=== PATIENT | female | born 1985 | race Caucasian/White ===

== ENCOUNTER 2020-04-02 16:10 | Outpatient (REF) | payer OTHER, SELFPAY | END 2020-04-02 16:11 | disposition home or self-care (01) | LOC: HO.LAB 16:10 | PROVIDERS: Visit Provider Internal Medicine | DX: Z20.828 Contact with and (suspected) exposure to other viral communicable diseases (principal) | CPT/HCPCS: C9803; U0003 ==

== ENCOUNTER 2020-04-26 10:08 | Outpatient (REF) | payer OTHER, SELFPAY | END 2020-04-26 10:09 | disposition home or self-care (01) | LOC: HO.LAB 10:08 | PROVIDERS: PCP Physician Assistant; Visit Provider Internal Medicine | DX: Z20.822 Contact with and (suspected) exposure to COVID-19 (principal) | CPT/HCPCS: 36415; C9803; U0003 ==

== ENCOUNTER 2020-06-18 14:08 | Outpatient (REF) | payer OTHER, SELFPAY ==
[2020-06-18 17:18] LABS: Syphilis Screen Nonreactive (Nonreactive)
[2020-06-20 03:51] LABS: C. trachomatis RNA TMA NOT DETECTED (NOT DETECTED); N. gonorrhoeae RNA TMA NOT DETECTED (NOT DETECTED)
[2020-06-21 04:10] LABS: HIV AB/AG Nonreactive (Nonreactive); HIV Num 1 0.04 S/CO (0.00-0.99)
[2020-06-21 04:21] LABS: HBsAGNum1 0.17 S/CO (0.00-0.99); Hepatitis B Surface Antigen Negative (Negative); ~HepC Num1 0.09 S/CO (0.00-0.79); ~Hepatitis C Antibody Nonreactive (Nonreactive)
[2020-06-23 04:48] LABS: HPV mRNA E6/E7 rflx Not Detected (Not Detected)
== END 2020-06-18 14:09 | disposition home or self-care (01) ==
LOC: HO.LAB 14:08
PROVIDERS: PCP Physician Assistant; Visit Provider Advanced Practice Midwife
DX: Z01.411 Encounter for gynecological examination (general) (routine) with abnormal findings (principal); Z11.51 Encounter for screening for human papillomavirus (HPV); N92.6 Irregular menstruation, unspecified; N94.10 Unspecified dyspareunia; Z20.2 Contact with and (suspected) exposure to infections with a predominantly sexual mode of transmission
CPT/HCPCS: 36415; 86780; 86803; 87340; 87389; 87491; 87591; 87624; 88142

== ENCOUNTER 2020-07-28 12:18 | Outpatient (REF) | payer OTHER, SELFPAY ==
[2020-07-28 12:44] LABS: COVID-19 Test Negative (Negative)
== END 2020-07-28 12:19 | disposition home or self-care (01) ==
LOC: HO.LAB 12:18
PROVIDERS: Visit Provider Internal Medicine
DX: Z20.822 Contact with and (suspected) exposure to COVID-19 (principal)
CPT/HCPCS: 36415; 87635; C9803

== ENCOUNTER → 2020-08-09 09:52 | Outpatient (BNVA) | payer OTHER, SELFPAY | PROVIDERS: Visit Provider Advanced Practice Midwife | DX: Z13.89 Encounter for screening for other disorder (principal) | CPT/HCPCS: Q3014 ==

== ENCOUNTER 2020-09-16 21:59 | Emergency (ER) | payer OTHER, SELFPAY ==
[2020-09-16 22:02] VITALS: BP 110/63; PULSE 79; RESP 18; TEMP 37; O2SAT 97; BMI 32.1
--- NOTE | 2020-09-16 22:12 | PC.NURSE ---
nodding off in wr. easily arousable to voice. pupils 3-4 mm
== END 2020-09-16 23:15 | disposition left against medical advice (07) ==
PROVIDERS: Emergency Provider Internal Medicine; PCP Physician Assistant
DX: L23.9 Allergic contact dermatitis, unspecified cause (principal)
CPT/HCPCS: 99282

== ENCOUNTER 2021-01-03 12:21 | Outpatient (REF) | payer OTHER, SELFPAY ==
[2021-01-04 04:48] LABS: HBc Num1 0.07 S/CO (0.00-0.79); Hepatitis B Core Antibody Nonreactive (Nonreactive); ~Hepatitis B Surface Antibody REACTIVE (Nonreactive)
[2021-01-04 04:55] LABS: HBsAGNum1 0.19 S/CO (0.00-0.99); Hepatitis B Surface Antigen Negative (Negative)
[2021-01-05 02:36] LABS: Rubella IgG Antibody 1.34 Index
[2021-01-06 13:21] LABS: TS Negative Control Passed; TS Panel A 1; TS Panel B 0; TS Positive Control Passed; TSpotTB Negative (SeeBelow)
== END 2021-01-03 12:22 | disposition home or self-care (01) ==
LOC: HO.LAB 12:21
PROVIDERS: PCP Physician Assistant; Visit Provider Physician Assistant
DX: Z01.84 Encounter for antibody response examination (principal)
CPT/HCPCS: 36415; 86481; 86704; 86706; 86735; 86762; 86765; 86787; 87340

== ENCOUNTER 2021-01-10 11:01 | Outpatient (REF) | payer OTHER, SELFPAY ==
[2021-01-10 12:25] LABS: Hematocrit 43.4 % (37-47); Hemoglobin 14.1 g/dl (12.0-16.0); Mean Corpuscular HGB Conc 32.5 g/dl (31.0-35.0); Mean Corpuscular Hemoglobin 28.5 pg (27.0-33.0); Mean Corpuscular Volume 87.7 fL (80-98); Mean Platelet Volume 11.5 fL (9.4-12.3); Platelet Count 346 X10*3/uL (160-400); Red Blood Count 4.95 X10*6/uL (4.20-5.50); White Blood Count 9.5 X10*3/uL (4.8-10.8)
[2021-01-10 12:30] LABS: Estimated Average Glucose 108 mg/dL; Hemoglobin A1c % 5.4 %
[2021-01-10 12:50] LABS: Alanine Aminotransferase 25 U/L (0-31); Albumin Level 4.2 g/dL (3.5-5.0); Alkaline Phosphatase 80 U/L (39-117); Anion Gap 12 (12-20); Aspartate Amino Transferase 14 U/L (5-31); Bilirubin Total 0.4 mg/dL (0.0-1.0); Blood Urea Nitrogen 13 mg/dL (9-16); Calcium 9.6 mg/dL (8.4-10.2); Carbon Dioxide 27 mmol/L (22-29); Chloride 104 mmol/L (96-108); Cholesterol 162 mg/dL; Estimated Glomerular Filt Rate > 60; Glucose Fasting 95 mg/dL (60-99); HDL Cholesterol 50 mg/dL; LDL Cholesterol Calculated 92 mg/dl; Potassium 4.8 mmol/L (3.3-5.1); Sodium 138 mmol/L (135-145); Total Protein 7.5 g/dL (6.5-8.0); Triglycerides 100 mg/dL
[2021-01-10 12:54] LABS: TSH reflex Free T4 1.89 uIU/mL (0.32-4.0)
== END 2021-01-10 11:02 | disposition home or self-care (01) ==
LOC: HO.LAB 11:01
PROVIDERS: PCP Physician Assistant; Visit Provider Physician Assistant
DX: Z13.1 Encounter for screening for diabetes mellitus (principal); E66.09 Other obesity due to excess calories; Z68.32 Body mass index [BMI] 32.0-32.9, adult; I10 Essential (primary) hypertension
CPT/HCPCS: 36415; 80053; 80061; 83036; 84443; 85027

== ENCOUNTER → 2021-06-14 12:07 | Outpatient (BNVA) | payer OTHER, SELFPAY | PROVIDERS: PCP Physician Assistant; Visit Provider Dietitian, Registered | DX: E66.09 Other obesity due to excess calories (principal); Z68.32 Body mass index [BMI] 32.0-32.9, adult; Z71.3 Dietary counseling and surveillance | CPT/HCPCS: 97802 ==

== ENCOUNTER 2021-11-09 14:26 | Outpatient (REF) | payer OTHER, SELFPAY ==
[2021-11-09 15:48] LABS: Hematocrit 38.7 % (37.0-47.0); Hemoglobin 12.7 g/dl (12.0-16.0); Mean Corpuscular HGB Conc 32.8 g/dl (31.0-35.0); Mean Corpuscular Hemoglobin 29.5 pg (27.0-33.0); Mean Corpuscular Volume 89.8 fL (80.0-98.0); Mean Platelet Volume 11.3 fL (9.4-12.3); Platelet Count 298 X10*3/uL (160-400); Red Blood Count 4.31 X10*6/uL (4.20-5.50); Red Cell Distribution Width 12.7 % (11.0-16.0)
[2021-11-09 16:10] LABS: Anion Gap 11 (12-20); Blood Urea Nitrogen 13 mg/dL (9-16); Calcium 8.6 mg/dL (8.4-10.2); Carbon Dioxide 26 mmol/L (22-29); Chloride 107 mmol/L (96-108); Estimated Glomerular Filt Rate > 60; Glucose Random 112 mg/dL (60-115); Iron 70 mcg/dL (30-160); Percent Iron Saturation 18 % (15-50); Potassium 3.9 mmol/L (3.3-5.1); Sodium 140 mmol/L (135-145); Total Iron Binding Capacity 385 mcg/dL (228-428); Unsaturated Iron Binding 315 ug/dL
[2021-11-09 16:31] LABS: Syphilis Screen Nonreactive (Nonreactive); TSH reflex Free T4 0.86 uIU/mL (0.32-4.0)
[2021-11-09 17:24] LABS: CT PCR NOT DETECTED (Not Detect.); NG PCR NOT DETECTED (Not Detect.)
[2021-11-10 09:22] LABS: HIV AB/AG Nonreactive (Nonreactive); HIV Num 1 0.06 S/CO (0.00-0.99)
== END 2021-11-09 14:27 | disposition home or self-care (01) ==
LOC: HO.LAB 14:26
PROVIDERS: PCP Physician Assistant; Visit Provider Physician Assistant
DX: Z11.3 Encounter for screening for infections with a predominantly sexual mode of transmission (principal); Z11.4 Encounter for screening for human immunodeficiency virus [HIV]; R23.3 Spontaneous ecchymoses; D50.9 Iron deficiency anemia, unspecified; Z20.2 Contact with and (suspected) exposure to infections with a predominantly sexual mode of transmission
CPT/HCPCS: 80048; 83540; 84443; 85027; 86780; 87389; 87491; 87591

== ENCOUNTER 2022-06-17 05:11 | Emergency (ER) | payer OTHER, SELFPAY ==
--- NOTE | ~2022-06-17 | CT_ITS ---
EXAMINATION: CT HEAD WITHOUT CONTRAST CLINICAL INFORMATION: Face tingling, cocaine use COMPARISON: 06/04/2019 TECHNIQUE: Contiguous axial imaging was performed from the skull base to vertex without intravenous administration of contrast. This CT examination was performed using dose optimization techniques as appropriate, variously including the following: *Automated exposure control *Adjustment of mA and/or kV according to patient size (this includes techniques or standardized protocols for targeted exams where dose is matched to indication/reason for exam; i.e. extremities or head) *Use of iterative reconstruction technique DLP: 608 mGy-cm FINDINGS: There is no evidence of acute intracranial hemorrhage or territorial infarction. No abnormal mass-effect or midline shift is seen. Heath to white matter differentiation is well preserved. No extra-axial fluid collections are identified. The ventricles are normal in size. There is no abnormal attenuation within the brain parenchyma. The osseous structures and soft tissues are normal. Partially opacified right mastoid air cells. The visualized portions of the paranasal sinuses are well-aerated. CT/CT head/brain wo IV con IMPRESSION: No acute intracranial pathology.
--- NOTE | ~2022-06-17 | MR_ITS ---
MRI OF THE BRAIN WITHOUT IV CONTRAST INDICATION: Left facial numbness and aphasia. COMPARISON: Brain MRI 06/04/[address] 06/17/2022. TECHNIQUE: Multiplanar multisequence MR imaging of the brain was obtained without IV contrast. FINDINGS: There is no hydrocephalus, extra-axial surface collection, or herniation. No parenchymal signal abnormality. The major flow voids at the skull base are preserved. There is no acute infarct on diffusion-weighted imaging. There is no intracranial hemorrhage on the gradient recalled echo acquisition. The midline structures are normal. The cerebellar tonsils are normally positioned. The cerebellum and brainstem are normal. The craniocervical junction is normal. Osseous marrow signal intensity is homogenous. The visualized soft tissues are unremarkable. MR/MR head/brain wo con IMPRESSION: - No acute intracranial findings. No acute infarcts. - There is a moderate sized right mastoid effusion.
[2022-06-17 05:27] VITALS: BP 132/86; BP 133/70; PULSE 80; PULSE 83; RESP 16; TEMP 36.7; O2SAT 100; O2SAT 99; BMI 29.2
--- NOTE | 2022-06-17 05:41 | ECG_ITS ---
Test Reason : HEADACHE Blood Pressure : / mmHG Vent. Rate : 072 BPM Atrial Rate : 072 BPM P-R Int : 130 ms QRS Dur : 090 ms QT Int : 394 ms P-R-T Axes : 057 024 018 degrees QTc Int : 431 ms Normal sinus rhythm Normal ECG When compared to the previous EKG of No significant changes seen Referred By: Generic ED Physician Electronically Signed By:SANG MCKENZIE MD
[2022-06-17 05:57] LABS: MANUAL DIFF FLAG NO
[2022-06-17 05:58] LABS: Basophils Percent Auto 0.4 % (0-2); Eosinophils Percent Auto 0.2 % (0-4); Hematocrit 35.9 % (37.0-47.0); Hemoglobin 11.9 g/dl (12.0-16.0); Imm Gran Abs Auto 0.02 X10*3/uL (0.00-0.03); Imm Gran Pct Auto 0.2 % (0.0-0.4); Lymphocytes Absolute Auto 2.1 X10*3/uL (1.2-4.9); Lymphocytes Percent Auto 19.9 % (20-40); Mean Corpuscular HGB Conc 33.1 g/dl (31.0-35.0); Mean Corpuscular Hemoglobin 28.6 pg (27.0-33.0); Mean Corpuscular Volume 86.3 fL (80.0-98.0); Mean Platelet Volume 11.4 fL (9.4-12.3); Monocytes Absolute Auto 0.6 X10*3/uL (0.1-1.2); Monocytes Percent Auto 5.4 % (2-11); Neutrophils Absolute Auto 7.7 x10*3/uL (2.0-8.3); Neutrophils Percent Auto 73.9 % (45-73); Platelet Count 327 X10*3/uL (160-400); Red Blood Count 4.16 X10*6/uL (4.20-5.50); Red Cell Distribution Width 12.5 % (11.0-16.0); White Blood Count 10.5 X10*3/uL (4.8-10.8)
--- NOTE | 2022-06-17 05:58 | PC.NURSE ---
Patient reports symptoms are improving. She is alert and oriented x3. Her speech is clear. Patient denies issues with swallowing. Her vision is not blurry any more. Left sided numbness and tingling is almost completely resolved. VSS. Labs drawn and sent to lab. panel monitor applied, NSR, HR 77. Patient oriented to the room, instructed in call sahu use and symptoms to report. Call sahu within patient's reach. Patient is calm, on the stretcher bed, speaking to her to her on the phone.
[2022-06-17 06:21] LABS: Anion Gap 15 (12-20); Blood Urea Nitrogen 15 mg/dL (9-16); Calcium 9.1 mg/dL (8.4-10.2); Carbon Dioxide 23 mmol/L (22-29); Chloride 107 mmol/L (96-108); Creatinine Clr Calc Pharmacy 91.5; Estimated Glomerular Filt Rate > 60; Glucose Random 100 mg/dL (60-115); Potassium 3.9 mmol/L (3.3-5.1); Sodium 141 mmol/L (135-145); Troponin-I High Sensitivity < 3.5 ng/L (<3.5-17.0)
[2022-06-17 06:29] VITALS: BP 139/83; PULSE 85; RESP 19; TEMP 36.5; O2SAT 97
--- NOTE | 2022-06-17 06:39 | MHC.EDTECH ---
Pt made aware that urine sample is needed but states that she does not want to try go right now because she doesn't need to go. Rn Luz made aware
[2022-06-17 06:43] VITALS: PULSE 81
--- NOTE | 2022-06-17 06:44 | PC.NURSE ---
Labs drawn, patient refused IV line placement at this time reporting that we could do it later if needed. Dr. Hernandez notified.
--- NOTE | 2022-06-17 07:08 | ED_ITS ---
HPI - General Adult General Chief complaint: ETOH/Substance Use Stated complaint: Left arm Numbness/Drug Use Time Seen by Provider: 06/17/22 06:53 Source: patient and EMS Mode of arrival: EMS Limitations: no limitations History of Present Illness HPI narrative: 37-year-old female came in by ambulance for evaluation of left-sided facial in left arm numbness. Patient used cocaine last night shortly after sniffing cocaine patient started to feel left facial numbness and left upper extremities numbness, patient also lost her voice and could not speak, patient while in the emergency department her symptoms start to improve. Patient normally do not use drugs claimed that that is her 1st time using cocaine. No fever, no chills, now patient feels better but not totally back to normal. Related Data Home Medications Medication Instructions Recorded Confirmed spironolactone 100 mg tablet 100 mg PO BID 01/15/20 11/09/21 Previous Rx's Medication Instructions Recorded prednisone 20 mg tablet 20 mg PO BID #9 tabs 06/27/21 fluconazole 150 mg tablet 150 mg PO Q3D 2 doses #2 tabs 07/25/21 albuterol sulfate 90 mcg/actuation 2 puff inhalation Q4-6H PRN 10/11/21 aerosol inhaler bronchospasm #8.5 grams albuterol sulfate 2.5 mg/3 mL 2.5 mg (3 mL) inhalation Q6H PRN 11/28/21 (0.083 %) solution for nebulization shortness of breath or wheezing 30 days #180 mL norethindrone acetate 1 mg-ethinyl 1 tab PO DAILY #63 tabs 12/29/21 estradiol 20 mcg tablet (Junel) bupropion HCl 150 mg tablet,12 hr 150 mg PO BID #180 caps 05/08/22 sustained-release risperidone 0.5 mg tablet 0.5 mg PO BID 90 days #180 tabs 05/20/22 Allergies Allergy/AdvReac Type Severity Reaction Status Date / Time No Known Allergies Allergy Verified 11/09/21 13:52 [No Known Allergies*] Review of Systems Review of Systems: All other systems are reviewed and are negative Constitutional: Reports as per HPI and Reports no additional constitutional complaints Eyes: Reports as per HPI and Reports no additional eye complaints Reports system reviewed and no additional complaints, except as documented Cardiovascular: Reports as per HPI and Reports no additional cardiovascular complaints Respiratory: Reports as per HPI and Reports no additional respiratory complaints Gastrointestinal: Reports as per HPI and Reports no additional gastrointestinal complaints Genitourinary: Reports no additional female genitourinary complaints Musculoskeletal: Reports no additional musculoskeletal complaints Skin/Breast: Reports system reviewed and no additional complaints, except as docu Psychiatric: Reports no additional psychiatric complaints Endocrine: Reports no additional endocrine complaints Hematologic/Lymphatic: Reports no additional hematologic/lymphatic complaints Allergic/Immunologic: Reports no additional allergic/immunologic complaints Reports system reviewed and no additional complaints, except as documented and Reports Abnormal speech present [facility] Past Medical History Surgical History delivery delivered H/O LEEP History of bilateral tubal ligation Family History Family History Father AIDS Mother Heart failure Diabetes Stroke Mental health disorder Social History Social History Housing: Apartment Alcohol intake: current Alcohol intake frequency: holidays/special occasions only Patient Tobacco Use Status: Former Tobacco user Quit Date: 08/2021 Tobacco use type: Smokeless Tobacco Cigarettes Per Day: 4 e-Cigarette/Vaping Use: Currently Using (2 month ago with zero nicotine) Second Hand Smoke Exposure: No Use of substances other than those prescribed or required for medical reasons: Yes Substance Use Type: Crack/Cocaine Last Used Substance: Hours (ago) Advance Directives: No Advance Directives Information Provided: No service: No Current occupational status: employed Current occupation: [employer] FOR [employer] Gender identity: Female Cognitive needs: No Hearing needs: No Vision needs: No Physical Exam ED Vital Signs: Vital Signs - 24 hr 06/17/22 05:27 06/17/22 06:29 06/17/22 07:29 Temperature 98.0 F 97.7 F 97.7 F Pulse Rate 83 85 68 Respiratory Rate 16 19 16 Blood Pressure 132/86 139/83 122/74 Pulse Oximetry 99 97 98 Oxygen Delivery Method Room Air Room Air Room Air BMI result Body Mass Index 29.2 Vital signs have been reviewed as appeared to be correct. Blood pressure normal. Heart rate normal. Respiration rate normal. Temperature normal. Ox ygen saturation normal. Appearance: Alert. Oriented X3. No acute distress. Head: Normal external exam. Normocephalic. Atraumatic. No Thompson signs noted. No raccoon eyes noted Eyes: PERRLA. EOMI. Conjunctiva and sclera normal. Eyelids normal. ENT: TM's Normal. Pharynx normal. Uvula midline. Moist mucous membranes. No trismus noted. No drooling noted. No muffled voice noted. Neck: Normal inspection. Neck supple. FROM. No adenopathy. Thyroid Normal. No meningeal signs. No neck mass noted. CVS: Normal heart rate and rhythm. Heart sound normal. No murmurs noted. Pulses normal throughout. Respiratory: No respiratory distress. Painless inspiration. Breath sounds n ormal. No wheezes/rales/rhonchi noted. Chest nontender. No accessory muscle usage noted or decreased air movement noted. Abdomen: Soft and nontender. Bowel sounds normal in all 4 quadrants. No diste ntion noted. No organomegaly noted. No visible injury noted. Back: No CVA tenderness. Full range of motion noted. Skin: Skin warm and dry. Normal skin color. Normal skin turgor. No rashes/lesions/lacerations noted. Extremities: No lower extremity edema. Extremities exhibit normal range of m otion. Extremities nontender. Neuro: Oriented X 3. Cranial nerve exam: II-XII are grossly intact No motor deficit. No sensory deficit. Reflexes normal. NIH Stroke Scale Time: 07:11 Level of Consciousness: Alert Level of Consciousness Questions: Answers both questions correctly Level of Consciousness Commands: Performs both tasks correctly Best Gaze: Normal Visual: No visual loss Facial Palsy: Normal Motor Arm (Right): No drift Motor Arm (Left): No drift Motor Leg (Right): No drift Motor Leg (Left): No drift Limb Ataxia: Absent Sensory: Normal Best Language: No aphasia Dysarthia: Normal Extinction and Inattention: No abnormality Score: 0 Course Course Course Narrative: 37-year-old female presented with left side numbness and lost ability to speak for few minutes, neuro exam is totally normal in the emergency department with NIH score of 0. Normal CT/MRI of the brain for acute stroke. Patient will be discharged home patient was instructed not to use drugs in the future. Medical Decision Making Differential Diagnosis Differential Diagnoses: The differential diagnosis associated with the presentation includes (Anxiety, substance abuse effect, stroke.) Lab Data MDM Lab Attestation statement: I reviewed the patient's lab results. 06/17/22 05:52 06/17/22 05:52 Labs: Lab Results 06/17/22 06/17/22 06/17/22 Range/Units 05:52 05:52 05:52 WBC 10.5 (4.8-10.8) X10*3/uL RBC 4.16 L (4.20-5.50) X10*6/uL Hgb 11.9 L (12.0-16.0) g/dl Hct 35.9 L (37.0-47.0) % MCV 86.3 (80.0-98.0) fL MCH 28.6 (27.0-33.0) pg MCHC 33.1 (31.0-35.0) g/dl RDW 12.5 (11.0-16.0) % Plt Count 327 (160-400) X10*3/uL MPV 11.4 (9.4-12.3) fL Immature Gran % (Auto) 0.2 (0.0-0.4) % Neut % (Auto) 73.9 H (45-73) % Lymph % (Auto) 19.9 L (20-40) % Haskell % (Auto) 5.4 (2-11) % Eos % (Auto) 0.2 (0-4) % Baso % (Auto) 0.4 (0-2) % Lymph # (Auto) 2.1 (1.2-4.9) X10*3/uL Haskell # (Auto) 0.6 (0.1-1.2) X10*3/uL Eos # (Auto) 0.0 (0.0-0.4) X10*3/uL Baso # (Auto) 0.0 (0.0-0.2) X10*3/uL Abs Immat Gran (auto) 0.02 (0.00-0.03) X10*3/uL Absolute Neuts (auto) 7.7 (2.0-8.3) x10*3/uL Absolute Nucleated RBC 0.000 (0.0-0.012) X10*3/uL Nucleated RBC % (auto) 0.0 (0.0-0.2) /100WBC Sodium 141 (135-145) mmol/L Potassium 3.9 (3.3-5.1) mmol/L Chloride 107 (96-108) mmol/L Carbon Dioxide 23 (22-29) mmol/L Anion Gap 15 (12-20) BUN 15 (9-16) mg/dL Creatinine 0.77 (0.5-1.4) mg/dL Estim Creat Clear Calc 91.5 Estimated GFR > 60 Random Glucose 100 (60-115) mg/dL Calcium 9.1 (8.4-10.2) mg/dL Troponin I High Sens < 3.5 (<3.5-17.0) ng/L Independent Interpretation I performed an independent interpretation of an: CT Scan (Brain: No acute intracranial pathology.) Interpretation: MRI of the brain: No acute stroke. Radiology Impression Discussion of test interpretation with radiology: I have reviewed the radiologist's reading. Critical Care Time Critical Care Time Critical Care Time: Yes Total Critical Care Time: 45 Attestation: I spent 45 minutes providing critical care service to the patient, this including time spent at the bedside to evaluate the patient, reassess the patient, monitoring vital signs, review labs, and radiographic studies, counseling the patient/family, discussing the case with consultants, disposition the patient. Discharge Plan Discharge Clinical Impression: Anxiety, Substance abuse Patient Disposition: Home, Self-Care Instructions: Polysubstance Abuse (ED) Prescriptions: No Action fluconazole 150 mg tablet 150 mg PO Q3D Qty: 2 0RF albuterol sulfate 90 mcg/actuation HFA aerosol inhaler 2 puff inhalation Q4-6H PRN (Reason: bronchospasm) Qty: 8.5 2RF albuterol sulfate 2.5 mg /3 mL (0.083 %) solution for nebulization 2.5 mg inhalation Q6H PRN (Reason: shortness of breath or wheezing) 30 Days Qty: 180 0RF norethindrone ac-eth estradiol [05/05 (21)] 1-20 mg-mcg tablet 1 tab PO DAILY Qty: 63 1RF bupropion HCl 150 mg tablet sustained-release 12 hr 150 mg PO BID Qty: 180 1RF risperidone 0.5 mg tablet 0.5 mg PO BID 90 Days Qty: 180 0RF spironolactone 100 mg tablet 100 mg PO BID prednisone 20 mg tablet 20 mg PO BID Qty: 9 0RF Rx Instructions: tapered dose, take 1 tablet bid x 3 days, then 1 tablet once a day x 3 days then discontinue Interventions: [place]-Suicide Risk Severity Scale Last Done: 06/17/22 06:43
[2022-06-17 07:29] VITALS: BP 122/74; PULSE 68; RESP 16; TEMP 36.5; O2SAT 98
--- NOTE | 2022-06-17 09:42 | PC.NURSE ---
mri screening form done and faxed to dept.
--- NOTE | 2022-06-17 11:37 | PC.NURSE ---
pt sitting up at end of stretcher fully dressed, nad. pt asking if she may go home and get called by provider with mri results. provider aware, will speak with pt shortly. pt tolerating po, neuros grossly intact ambulating in pt room w steady gait.
== END 2022-06-17 12:10 | disposition home or self-care (01) ==
PROVIDERS: Emergency Provider Emergency Medicine
DX: F41.9 Anxiety disorder, unspecified (principal); F19.10 Other psychoactive substance abuse, uncomplicated; R20.0 Anesthesia of skin; R47.01 Aphasia; Z87.891 Personal history of nicotine dependence; Z79.899 Other long term (current) drug therapy
CPT/HCPCS: 36415; 70450; 70551; 80048; 84484; 85025; 93005; 99285

== ENCOUNTER 2022-10-12 10:30 | Outpatient (RCR) | payer OTHER, SELFPAY ==
[2022-09-29 10:38] VITALS: BP 104/81; PULSE 65; TEMP 36.5
[2022-09-29 10:42] VITALS: BMI 28.0
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
[2022-09-29 12:34] LABS: Amphetamine Screen Urine Not Detected (Not Detect); Barbiturates, Urine Not Detected (Not Detect); Benzodiazepines Screen Urine Not Detected (Not Detect); Cannabinoid Screen Urine Not Detected (Not Detect); Cocaine Screen Urine Not Detected (Not Detect); Fentanyl, urine Not Detected (Not Detect); Opiate Screen Urine Not Detected (Not Detect); Phencyclidine Screen Urine Not Detected (Not Detect)
--- NOTE | 2022-10-03 13:20 | HO.PHPPROGNO ---
Subjective Subjective Date of Service: 10/03/22 Reason For Visit: bipolar,PTSD,anxiety Healthcare Proxy: No Guardianship: No Medical Problems Affecting Mental Status: No Interim History: Agatha is seen for a follow-up visit as part of her partial hospital program. Records and plans were reviewed. Labs were reviewed. She has been started on Seroquel 25 mg q.h.s. for sleep which had not worked for several nights except last night she did sleep 7 or 8 hours. She also has been started on Lamictal 25 mg at the end of last week and will go up to 50 mg in 2 weeks. She denies any side effects on either medications. She continues to feel depressed. She denies any specific suicidal ideations but continues to feel depressed and have wishes but no specific plans. She is finding the program helpful in she is engaged. She will continue the Lamictal and increase Seroquel to 50 mg. Medication Compliance: No Side effects from medications: No Attending Groups: Yes Review of Systems Review of Systems Sleep Yes all other systems are reviewed and are negative Mental Status Exam Mental Status Exam Narrative: In today's visit she is alert, oriented and pleasant. Normal speech. Good eye contact. Affect is appropriate and varied. Moderate dysphoria present. No signs of psychosis. No active suicidal ideations but continues to have wishes and not wanting to be around but denies any plans or danger. She contracts for safety. Cognitively is intact. Judgment is intact. Diagnostics Vital Signs (24Hr): BMI result Body Mass Index 28.0 Assessment & Plan Assessment & Plan (1) Bipolar disorder with current episode depressed: Status: Acute Code(s): F31.30 - Bipolar disorder, current episode depressed, mild or moderate severity, unspecified Plan She will continue the PHP. She will continue the gradual increase of Lamictal. She is aware of Mohr-Davion syndrome. Seroquel is increased to 50 mg. Two week supply with 1 refill was called in. She needs to be referred to an outpatient prescriber. She does have a therapist Patient educated on: diagnosis and medication risk/benefits Certification I certify that partial hospital treatment is medically necessary due to the symptoms and problems resulting from the patient's mental illness and the failure to treat the patient at the partial hospital level of care would likely result in the patient requiring inpatient psychiatric care which could not be prevented at a less intensive level of care. Total time managing care of this patient today ____ minutes. Discharge Plan Discharge Attending provider: Kiel Benito Medications: New quetiapine 25 mg tablet 25 mg PO BEDTIME Qty: 7 0RF lamotrigine 25 mg tablet 25 mg PO DAILY 14 Days Qty: 14 0RF No Action albuterol sulfate 90 mcg/actuation HFA aerosol inhaler 2 puff inhalation Q4-6H PRN (Reason: bronchospasm) Qty: 8.5 2RF melatonin 10 mg Tablet 10 mg PO BEDTIME PRN (Reason: Insomnia) ibuprofen 600 mg tablet 600 mg PO Q8H PRN (Reason: pain) Qty: 30 0RF cyclobenzaprine 5 mg tablet 5 mg PO BEDTIME PRN (Reason: muscle spasm) Qty: 14 0RF
--- NOTE | 2022-10-03 15:09 | HO.PHP ---
PHP staff member met with Agatha after the activity group to explore with her the comment around substance use, due to her stating prior she didn't struggle with substances. Agatha disclosed that she has been worried to talk about substance use because she does not want her job to find out that she had struggled with substances and finds it embarrassing. Agatha mentioned she has been trying to overcome it through prayer and talking with god. PHP staff explored with Agatha her substance of choice and how long she has been sober for. Agatha noted it is cocaine and she hasn't used in 22 days. Agatha expressed that she never thought she would use substances. PHP staff assessed with Agatha if she would like to partake in the substance group and mentioned that information that is disclosed is confidential unless she provided a release stating we can disclose that or if a vice president of compliance asks to view her records. Agatha was receptive and noted she would like to try the substance group and see if it would be something she would like to continue with. [facility] staff was receptive and stated she will inform the other staff here. Agatha was in agreement.
--- NOTE | 2022-10-06 08:53 | HO.PHP ---
The clients case was reviewed and opened in treatment team
--- NOTE | 2022-10-12 08:28 | HO.PHP ---
I spoke with Tori about her discharge plans . She will be returning to work and I will fax a referral for a prescriber to [facility]. I called her therapist and she stated that she will return my call.
--- NOTE | 2022-10-12 13:21 | HO.PHPPROGNO ---
Subjective Subjective Date of Service: 10/12/22 Reason For Visit: bipolar,PTSD,anxiety Healthcare Proxy: No Guardianship: No Medical Problems Affecting Mental Status: No Interim History: Agatha is seen for a follow-up visit as part of her partial hospital program. She is being discharged today. Records and plans were reviewed. She has been taking Seroquel 50 mg q.h.s. for sleep which has been helping; she say she is sleeping well. she still feels hypomanic and wants directions on how to titrate the lamictal. She denies any side effects on either medications. No rash. She continues to feel depressed and hypomani at times with racing thoughts. she says her mood is more stable than when she was not on any meds; She denies any suicidal ideations. She found the program helpful and plans to follow up with her PCP for meds. She will continue the Lamictal titration and Seroquel to 50 mg. Medication Compliance: Yes Side effects from medications: No Attending Groups: Yes Review of Systems Acute medical concerns: No Medical Review of Systems: unchanged Review of Systems Review of Systems Sleep Yes all other systems are reviewed and are negative Mental Status Exam Mental Status Exam Narrative: In today's visit she is alert, oriented and pleasant. Normal speech. Good eye contact. Affect is appropriate and varied. Moderate anxiety and dysphoria present. No signs of psychosis. No active suicidal or homicidal ideation She contracts for safety. Cognitively is intact. Judgment is intact. Diagnostics Vital Signs (24Hr): BMI result Body Mass Index 28.0 Assessment & Plan Assessment & Plan (1) Bipolar disorder with current episode depressed: Status: Acute Code(s): F31.30 - Bipolar disorder, current episode depressed, mild or moderate severity, unspecified Plan She will be discharged today from the [facility]. She will continue the gradual increase of Lamictal. Instructions given: take 50 mg daily x 10 days then 75 mg daily x 10 days then 100mg daily. stop lamictal if you develop a rash. She is aware of Mohr-Davion syndrome. contniue Seroquel 50 mg at bedtime. 10 day supply and 1 refill was called in. She needs to be referred to an outpatient prescriber. She does have a therapist Patient educated on: diagnosis, medication risk/benefits and therapeutic strategies Informed Consent: understands and further education needed Reason for contiued partial hosp. stay Substantial Risk for: harm to self, inability to function and rapid decompensation Certification I certify that partial hospital treatment is medically necessary due to the symptoms and problems resulting from the patient's mental illness and the failure to treat the patient at the partial hospital level of care would likely result in the patient requiring inpatient psychiatric care which could not be prevented at a less intensive level of care. Total time managing care of this patient today _40___ minutes. Discharge Plan Discharge Attending provider: Kiel Benito Medications: New lamotrigine 25 mg tablet 50 mg PO DAILY 20 Days Qty: 60 0RF Rx Instructions: take 2 tablets daily (50mg) for 10 days then take 3 tablets daily (75MG) for 10 days stop medication if develop rash quetiapine [Seroquel] 25 mg tablet 50 mg PO BEDTIME Qty: 20 1RF No Action albuterol sulfate 90 mcg/actuation HFA aerosol inhaler 2 puff inhalation Q4-6H PRN (Reason: bronchospasm) Qty: 8.5 2RF melatonin 10 mg Tablet 10 mg PO BEDTIME PRN (Reason: Insomnia) ibuprofen 600 mg tablet 600 mg PO Q8H PRN (Reason: pain) Qty: 30 0RF cyclobenzaprine 5 mg tablet 5 mg PO BEDTIME PRN (Reason: muscle spasm) Qty: 14 0RF Stand Alone Forms: Patient Portal Discharge page Patient Education: Bipolar Disorder (DC), Generalized Anxiety Disorder (GEN), Anxiety (GEN)
--- NOTE | 2022-10-12 15:11 | HO.PHP ---
I called and left a message for the clients therapist Adela Smith and left a message re client discharge from the program.
--- NOTE | 2022-10-13 13:40 | PC.NURSE ---
Discharge Note 10/12/22: Patient discharged today, 10/12/2022. Patient reports she is ready for discharge, denies SI/HI. Discharge plan including discharge medications reviewed with patient who verbalized understanding. Patient seen by Yudith Ken NP for medication/discharge appointment. Discharge medication list faxed to out patient provider.
== END 2022-10-12 23:59 | disposition home or self-care (01) ==
LOC: HO.PHPA 10:30
PROVIDERS: Visit Provider Psychiatry & Neurology Psychiatry
DX: F31.30 Bipolar disorder, current episode depressed, mild or moderate severity, unspecified (principal); F43.10 Post-traumatic stress disorder, unspecified; Z79.899 Other long term (current) drug therapy
CPT/HCPCS: 80307; 90791; 90853

== ENCOUNTER 2022-11-21 13:21 | Outpatient (AMB) | payer OTHER, SELFPAY ==
--- NOTE | 2022-11-21 13:27 | MHC.PC.OV ---
Vital Signs 11/21/22 13:29 Height 5 ft 2 in Weight 153 lb BMI 28.0 BP 122/70 Blood Pressure Location Rt brachial Position Sitting Pulse 81 Pulse Source Pulse Oximeter Pulse Oximetry (%) 99 Intake Visit Reasons: PE Intake Note: pt is here for physical exam Clinical Aide Required: No Accompanied by: Self / Same As Patient Allergies No Known Allergies [No Known Allergies*] Allergy (Verified 11/21/22 13:44) Medication List - Last Reconciled 11/21/22 by Corey Gunn PA-C albuterol sulfate 90 mcg/actuation 2 puffs inhalation Q4-6H PRN cyclobenzaprine 5 mg PO BEDTIME PRN hydroxyzine HCl 25 mg PO BID PRN ibuprofen 600 mg PO Q8H PRN lamotrigine 50 mg (2 x 25 mg) PO DAILY 20 days melatonin 10 mg PO BEDTIME PRN norethindrone ac-eth estradiol 1-20 mg-mcg (Junel) 1 tab PO DAILY quetiapine (Seroquel) 50 mg (2 x 25 mg) PO BEDTIME Tobacco use date assessed: 08/29/22 Dental Screening Dental Screen Date: 11/21/22 Did you have a dental visit in the last 12 months?: Yes Did you have a dental problem in the last 6 months where you did not have access to dental care?: No Was dental information given to patient?: Patient has dentist HPI PE HPI Details ?Patient is a 37-y ear-old female her e today for routin e annual physical. ? Patient has a buck solis medical history significant for B ipolar disorder, m ajor depressive di sorder, asthma, ob esity, tobacco use . concerns--> rep orts bilateral ear itchiness over e last several mon s. She does use cortisone 10 on a Q-tip times with some relief. 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 . Asthma: Reports her asthma has be en worse as of e due to her aller gies. Again she d eals with the freddy tiwari who has cats an d she is allergic. She does report using her albutero l inhaler though d oes not get too mu ch relief .. Bipo lar disorder:? Was recently admitted to partial hospit alization due to s evere depression. Has been set up w ith mental therapi st and a psychiatr ist whom will star t managing her men [facility]. . Also has p remenstrual dyspho dustin to which she h as been taking hor monal therapy for. She reports her current blood radha h control pills ar e not helpful and would like to mclaughlin ge back to Niru which was helpful in the past. .. Vaccine:? Needs t etanus vaccine(dec ),? needs pne umonia vaccine (de clines) [employer]: Had PAP 2 years ago- l ast one was normal ? ? Laboratory Tests 01/10/21 01/10/21 06/17/22 11:35 11:35 05:52 Hgb 11.9 L Potassium 4.8 Hemoglobin A1c % 5.4 TSH 1.89 [facility], [facility] Medical History (Updated 11/21/22 @ 14:30 by Corey Gunn PA-C) Asthma Post-traumatic stress disorder, unspecified Surgical History delivery delivered H/O LEEP History of bilateral tubal ligation Family History Father AIDS Mother Heart failure Diabetes Stroke Mental health disorder Social History (Updated 11/21/22 @ 13:48 by Corey Gunn PA-C) Household Members: Children Housing: Apartment Alcohol intake: former Patient Tobacco Use Status: Current everyday Tobacco user Tobacco use type: Smokeless Tobacco (VAPING) e-Cigarette/Vaping Use: Currently Using (2 month ago with zero nicotine) Second Hand Smoke Exposure: No Substance Use Type: Crack/Cocaine service: No Current occupational status: employed 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 1. Little interest or pleasure in doing things: not at all 2. Feeling down, depressed, or hopeless: not at all 3. Trouble falling or staying asleep, or sleeping too much: not at all 4. Feeling tired or having little energy: not at all 5. Poor appetite or overeating: not at all 6. Feeling bad about yourself - or that you are a failure or have let yourself or your family down: not at all 7. Trouble concentrating on things, such as reading the newspaper or watching television: not at all 8. Moving or speaking so slowly that other people could have noticed. Or the opposite - being so fidgety or restless that you have been moving around a lot more than usual: not at all 9. Thoughts that you would be better off or of hurting yourself in some way: not at all Total score: 0 Depression Screening Interpretation: Negative 83238 - PHQ-9 Billing: Yes Source: Developed by Drs. Gómez Mercado, Matilde Chaudhry, Devon Moreno and colleagues, with an educational dajuan from [employer]. Thrive Questionnaire Date Thrive assessed: 11/21/22 I am a: Patient What is your living situation today?: I have a steady place to live Within the past 12 months, did the food you bought not last and you didn't have the money to get more?: Never true Within the past 12 months, did you worry whether your food would run out before you got money to buy more?: Never true Do you have trouble paying for medicines?: No Do you have trouble getting transportation to medical appointments?: No Do you have trouble paying your heating and electricity bill?: No Do you have trouble taking care of your child, family member or friend?: No Do you have trouble with day-to-day activities such as bathing, preparing meals, shopping, managing finances, etc.?: No Are you currently unemployed and looking for a job?: No Are you interested in more education?: No Please select the resources that you would like help with: None Currently or been in a relationship where the following occur: no concerns reported SANDRA-7 AMB Questionnaire SANDRA-7 Date SANDRA - 7 assessed: 11/21/22 Feeling nervous, anxious, or on edge: 0 = Not at all Not being able to stop or control worryin = Not at all Worrying too much about different things: 0 = Not at all Trouble relaxin = Not at all Being so restless that it is hard to sit still: 0 = Not at all Becoming easily annoyed or irritable: 0 = Not at all Feeling afraid as if something awful might happen: 0 = Not at all Total SANDRA-7 score (0-4 normal; 5-9 mild; 10-14 moderate; 15-21 severe): 0 Source: Developed by Drs. Gómez Mercado, Matilde Chaudhry, Devon Moreno and colleagues, with an educational dajuan from [employer]. SANDRA-7 Assessment Billing SANDRA-7 Assessment Tool: SANDRA-7 Assessment 93386 ACT Questionnaire In the past 4 weeks, how much of the time did your asthma keep you from getting as much done at work, school or at home?: None of the time During the past 4 weeks, how often have you had shortness of breath?: 3-6 times a week During the past 4 weeks, how often did your asthma symptoms wake you up at night or earlier than usual in the morning?: Once a week During the past 4 weeks, how often have you had to use your rescue inhaler or nebulizer medication?: 2-3 times a week How would you rate your asthma control during the past 4 weeks?: Somewhat controlled ACT Interpretation: Positive Score: 17 Review of Systems Const Denies body aches, Denies chills, Denies excessive sweating, Denies fatigue, Denies fever(s) and Denies headache(s) Eyes Denies blurry vision ENT Denies dysphagia, Denies vertigo, Denies dizziness, Denies headache(s), Denies hearing loss and Denies tinnitus Card Denies chest pain, Denies chest pain with activity, Denies syncope, Denies irregular heart rhythm and Denies dyspnea Resp Denies chest congestion, Denies cough, Denies hemoptysis, Denies dyspnea and Denies wheezing GI Denies abdominal pain, Denies melena, Denies hematochezia, Denies coffee ground emesis, Denies dysphagia, Denies diarrhea, Denies nausea and Denies vomiting Denies urinary frequency, Denies dysuria, Denies urinary hesitancy and Denies urinary urgency Musc Denies arthralgias, Denies limited range of motion, Denies muscle cramps and Denies muscle weakness Skin/Breast Denies rash and Denies skin ulcer Neuro Denies Abnormal speech present, Denies confusion, Denies vertigo, Denies dizziness, Denies syncope, Denies headache(s), Denies memory loss and Denies seizure-like activity Psych Denies anxiety, Denies confusion, Denies depression, Denies memory loss, Denies panic attacks and Denies paranoia Endo Denies excessive sweating, Denies fatigue, Denies flushing, Denies polydipsia and Denies polyuria Aller/Immun Denies wheezing Physical exam (Primary Care) Vital Signs: Last Vital Signs Pulse 81 11/21/22 13:29 BP 122/70 11/21/22 13:29 Pulse Ox 99 11/21/22 13:29 BMI result Body Mass Index 28.0 Tobacco/Smoking Status: Tobacco use Status Tobacco use date assessed 08/29/22 11/21/22 13:28 Patient Tobacco Use Status Current everyday Tobacco 11/21/22 13:28 Tobacco use type Smokeless Tobacco (VAPING) 11/21/22 13:34 e-Cigarette/Vaping Use Currently Using (2 month ago 11/21/22 13:28 with zero nicotine) PHQ-9: PHQ-9 Score PHQ-9: Total score 0 11/21/22 13:34 Depression Screening Interpretation: Negative Thrive Assessment: Date of Thrive Assessment Date Thrive assessed 11/21/22 11/21/22 13:34 Currently or been in a relationship where the following occur: no concerns reported Const General: cooperative, comfortable, no acute distress, alert and awake; No confusion Orientation/consciousness: oriented to person, oriented to place, patient oriented x3 and No confusion HENMT Head: Yes normocephalic Ears: external ears normal and TM's normal bilaterally Face and sinus: No sinus tenderness Mouth: Normal oral and palatal mucosa present and tongue normal Teeth and gingiva: dentition normal and gingiva normal Throat: Yes posterior oropharynx normal, Yes tonsils normal and Yes uvula midline Eyes Conjunctivae: conjunctivae normal Sclerae: sclerae normal Pupils: Equal, round and reactive pupils present EOM: EOMs intact bilaterally Direct Ophthalmoscopy: No no photophobia Neck Neck: Yes no lymphadenopathy, No tender and Yes no JVD Thyroid: Thyroid normal Carotids: no bruits Chest Chest palpation & inspection: no tenderness Resp Effort & Inspection: normal respiratory effort, no audible wheezes, not labored and no stridor Auscultation: no crackles, no rales, no rhonchi and no wheezes Cardio Jugular venous distension: no JVD Rate: regular rate, not bradycardic and not tachycardic Rhythm: regular rhythm Bruits: no carotid bruits Peripheral pulses: Peripheral pulses 2+ throughout GI Inspection: Yes normal to inspection, No abdominal wall ecchymosis and No visible herniation Palpation (GI): Soft to palpation, nontender, no guarding, not rigid and No hepatosplenomegaly present Auscultation: normoactive bowel sounds General: Yes no CVA tenderness Back/Spine/Pelvis Back: no CVA tenderness and No back tenderness Cervical Spine: cervical ROM normal Thoracic/Lumbar Spine: thoracic and lumbar spine normal to inspection, straight leg raise negative bilaterally, No thoraco-lumbar ROM limited and No lumbar spinal tenderness Skin Lesions: no lesions Rashes: no rashes Wounds: no wounds Neuro General: oriented to person, oriented to place, patient oriented x3, CN's II-XI intact bilaterally and No confusion Cranial nerves: Yes Equal, round and reactive pupils present and Yes Normal accommodation reflex present Cognition (Neuro): normal cognition Speech: No Abnormal speech present Gait exam (Neuro): Normal gait present Motor exam (neuro): 5/5 motor strength present throughout Extrem Right upper extremity: full ROM; no cyanosis Left upper extremity: full ROM; no cyanosis Right lower extremity: no edema Left lower extremity: no edema Psych Appearance: grossly normal Mental Status: mental status grossly normal Affect: normal affect Attitude: cooperative Thought process: Normal thought process present Assessment and Plan Assessment & Plan (1) Annual physical exam: Code(s): Z00.00 - Encounter for general adult medical examination without abnormal findings (2) Bipolar disorder in partial remission: Code(s): F31.70 - Bipolar disorder, currently in remission, most recent episode unspecified Qualifiers: Most recent bipolar episode type: depressed Qualified Code(s): F31.75 - Bipolar disorder, in partial remission, most recent episode depressed Plan: Now followed by a psychiatrist and mental therapist whom will be managing her mental health medication. Feels he is now in a better place from a mental health standpoint. Now on 75 mg which gene for mood stabilization. (3) Irregular menstrual cycle: Code(s): N92.6 - Irregular menstruation, unspecified Plan: Reports her control pills have not been helping her and would like to transition back to niru which was help for for her in the past. Using hormonal therapy for premenstrual dysphoria and acne (4) Asthma: Code(s): J45.909 - Unspecified asthma, uncomplicated Qualifiers: Asthma severity: mild Asthma persistence: persistent Asthma complication type: uncomplicated Qualified Code(s): J45.30 - Mild persistent asthma, uncomplicated Plan: Patient reports her asthma has been worse as of late due to having a client with cats. Her albuterol treatments have not very affective. She reports she is allergic to cats. Will start Flovent inhaler for better control over asthma. (5) Ear itching: Code(s): L29.9 - Pruritus, unspecified (6) MDD (major depressive disorder), recurrent episode, moderate: Code(s): F33.1 - Major depressive disorder, recurrent, moderate Plan: Patient now speaking with a mental therapist and a psychiatrist whom now is managing her mental health medications. Orders: Orders Comprehensive [place]. Panel Fast Today Z13.1 - Encounter for screening for diabetes mellitus Medications: New drospirenone-ethinyl estradiol 3-0.03 mg (Niru (28)) 1 tab PO DAILY 28 tabs 6RF N92.6 - Irregular menstruation, unspecified acetic acid 2% apply to (cotton) wick; replace wick every 24 hours 3 drps otic (ear) left DAILY 28 days 15 mL 1RF L29.9 - Pruritus, unspecified fluticasone propionate 110 mcg/actuation (Flovent HFA) 1 puff inhalation BID 30 days 12 grams 3RF J45.30 - Mild persistent asthma, uncomplicated Coding Level of Care Code Est Pt Prev Care 18-39y([id number]) Diagnoses Annual physical exam Z00.00 Bipolar disorder in partial remission F31.75 Most recent bipolar episode type: depressed Irregular menstrual cycle N92.6 Asthma J45.30 Asthma severity: mild Asthma persistence: persistent Asthma complication type: uncomplicated Ear itching L29.9 MDD (major depressive disorder), recurrent episode, moderate F33.1 Additional Codes SANDRA-7 Assessment Billing - SANDRA-7 Assessment Tool: SANDRA-7 Assessment [id number] ([id number])
[2022-11-21 13:29] VITALS: BP 122/70; PULSE 81; O2SAT 99; BMI 28.0
== END 2022-11-21 14:05 | disposition home or self-care (01) ==
PROVIDERS: PCP Physician Assistant; Visit Provider Physician Assistant
DX: Z00.00 Encounter for general adult medical examination without abnormal findings (principal); F31.75 Bipolar disorder, in partial remission, most recent episode depressed; J45.30 Mild persistent asthma, uncomplicated; N92.6 Irregular menstruation, unspecified; L29.9 Pruritus, unspecified
CPT/HCPCS: 99395

== ENCOUNTER 2023-01-01 11:24 | Emergency (ER) | payer OTHER, SELFPAY ==
[2023-01-01 11:27] VITALS: BP 158/75; PULSE 73; RESP 26; TEMP 36.8; O2SAT 100; BMI 27.4
--- NOTE | 2023-01-01 11:28 | ED_ITS ---
HPI - Allergic Reaction General Chief complaint: Allergic Reaction Stated complaint: Allergic reaction Time Seen by Provider: 01/01/23 11:41 Source: patient and RN notes reviewed Mode of arrival: ambulatory Limitations: no limitations History of Present Illness HPI narrative: This is a 37-year-old female presenting to the emergency department with complaints of body itchinness and itchy throat x several hours. She states that she believes that she is allergic to cats. She states that she has never had a reaction like this before. She denies taking any medications prior to her arrival. No fevers, chills, difficulty swallowing, difficulty breathing, abdominal pain, nausea, vomiting or diarrhea. No other complaints or concerns at this time. MD complaint: allergic reaction Onset (ago): hour(s) Exposure: other (cats) Symptoms: itching Treatment prior to arrival: none Previous Allergic Reaction History: none Related Data Home Medications Medication Instructions Recorded Confirmed melatonin 10 mg tablet 10 mg PO BEDTIME PRN Insomnia 09/29/22 11/21/22 hydroxyzine HCl 25 mg tablet 25 mg PO BID PRN anxiety 11/21/22 11/21/22 Previous Rx's Medication Instructions Recorded albuterol sulfate 90 mcg/actuation 2 puff inhalation Q4-6H PRN 10/11/21 aerosol inhaler bronchospasm #8.5 grams cyclobenzaprine 5 mg tablet 5 mg PO BEDTIME PRN muscle spasm 08/29/22 #14 tabs ibuprofen 600 mg tablet 600 mg PO Q8H PRN pain #30 tabs 08/29/22 lamotrigine 25 mg tablet 50 mg (2 x 25 mg) PO DAILY 20 days 10/12/22 #60 tabs quetiapine 25 mg tablet (Seroquel) 50 mg (2 x 25 mg) PO BEDTIME #20 10/12/22 tabs acetic acid 2 % ear solution 3 drp otic (ear) left DAILY 28 11/21/22 days #15 mL drospirenone 3 mg-ethinyl 1 tab PO DAILY #28 tabs 11/21/22 estradiol 0.03 mg tablet (Niru (28)) fluticasone propionate 110 1 puff inhalation BID 30 days #12 11/21/22 mcg/actuation HFA aerosol inhaler grams (Flovent HFA) cetirizine 10 mg tablet 10 mg PO DAILY PRN allergy 01/01/23 symptoms #30 tabs Allergies Allergy/AdvReac Type Severity Reaction Status Date / Time cat dander [cats] Allergy Anxiety Verified 01/01/23 11:30 Review of Systems Review of Systems: Yes all other systems are reviewed and are negative Constitutional: Constitutional: Reports as per [facility] Past Medical History Medical History (Updated 01/02/23 @ 00:01 by Gail Khan) Post-traumatic stress disorder, unspecified Asthma Surgical History History of bilateral tubal ligation H/O LEEP delivery delivered Family History Family History Father AIDS Mother Heart failure Diabetes Stroke Mental health disorder Social History Social History (Updated 11/21/22 @ 13:48 by Corey Gunn PA-C) Household Members: Children Housing: Apartment Alcohol intake: former Patient Tobacco Use Status: Current everyday Tobacco user Tobacco use type: Smokeless Tobacco (VAPING) e-Cigarette/Vaping Use: Currently Using (2 month ago with zero nicotine) Second Hand Smoke Exposure: No Substance Use Type: Crack/Cocaine Advance Directives: No Advance Directives Information Provided: Yes service: No Current occupational status: employed 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 handling secretions well no oral pharyngeal edema no tongue elevation Head: Yes normal to inspection, Yes normocephalic and Yes atraumatic Ears: hearing grossly normal bilaterally General nose exam: Normal external nose present Face and sinus: Yes normal facial exam Mouth: Normal oral and palatal mucosa present, oropharynx normal and moist mucous membranes Throat: Yes posterior oropharynx normal Eyes General: appearance normal, both eyes and all related structures Eyelids: Yes eyelids normal Conjunctivae: conjunctivae normal Sclerae: sclerae normal Pupils: Equal, round and reactive pupils present EOM: EOMs intact bilaterally Neck Neck: Yes normal visual inspection, Yes full ROM and Yes no lymphadenopathy Lymphatic: no lymphadenopathy noted Chest Chest palpation & inspection: normal inspection of the chest Resp Effort & Inspection: normal respiratory effort and able to speak in complete sentences Auscultation: clear to auscultation bilaterally, no crackles, no rales, no rhonchi and no wheezes Cardio Rate: regular rate Rhythm: regular rhythm Heart sounds: S1 normal heart sound present and S2 normal heart sound present GI Inspection: Yes normal to inspection Skin General skin exam: no rashes or lesions noted Trauma: no lacerations or abrasions Wounds: no wounds Neuro General: patient oriented x3 and moves all extremities Cranial nerves: Yes Equal, round and reactive pupils present Extrem General: Yes normal to inspection Right upper extremity: normal to inspection Left upper extremity: normal to inspection Right lower extremity: normal to inspection Left lower extremity: normal to inspection Course Course Course Narrative: RME - 37 yo female presenting for evaluation of allergic reaction to cats. They have been living with her for 2.5 weeks. She feels SOB and dizzy today with nasal congestion. Saturating well on RA. Anxious and hyperventilating in triage. Plan: EMC, medicate w/ benadryl, pepcid and prednisone. ?ativan Medications Administered Discontinued Medications Generic Name Dose Route Start Last Admin Trade Name Freq PRN Reason Stop Dose Admin Diphenhydramine HCl 50 mg 01/01/23 11:27 01/01/23 11:40 Diphenhydramine Hcl 25 Mg Capsule PO 01/01/23 11:28 50 mg ONCE ONE Administration Famotidine 20 mg 01/01/23 11:27 01/01/23 11:40 Famotidine 20 Mg Tablet PO 01/01/23 11:28 20 mg ONCE ONE Administration Prednisone 60 mg 01/01/23 11:27 01/01/23 11:40 Prednisone 20 Mg Tablet PO 01/01/23 11:28 60 mg ONCE ONE Administration Medical Decision Making Medical Decision Making [facility] Narrative: 37 y/o F presenting to the ER with complaints of itchiness to body and throat. on arrival, patient appearing anxious. No hives, stridor, wheezing noted. Pt is nontoxic appearing and vital signs are stable. Pt medicated with benadryl, pepcid, and prednisone. Pt feeling much better after receiving these medications and requesting to be d/c. Given normal exam findings, will d/c patient with c etirizine and encouraged to avoid allergen. Pt understands and agrees with plan. Given return precautions. Stable for d/c. Differential Diagnosis Differential Diagnoses: The differential diagnosis associated with the presentation includes allergic reaction, angioedema, anaphylaxis Admission/Observation Consideration of admission/observation: Escalation of care including admission/observation considered Patient would have been admitted to the hospital had her work up had any findings where hospital admission was appropriate and her clinical presentation warranted hospital admission. Lab Data MDM Lab Attestation statement: I reviewed the patient's lab results. negative Labs: Lab Results 01/01/23 Range/Units 11:54 Influenza Type A (PCR) NEGATIVE (Negative) Influenza Type B (PCR) NEGATIVE (Negative) RSV RNA Qual (PCR) NEGATIVE (Negative) SARS-CoV-2 RNA (RT-PCR) NEGATIVE (Negative) S. pyogenes GrpA LIBAN Negative (Negative) Discharge Plan Discharge Clinical Impression: Allergic reaction to animal Patient Disposition: Home, Self-Care Instructions: Allergic Rhinitis (ED), Allergies (ED) Additional Instructions: You likely have an allergy to cats. You may also have seasonal allergies. You tested negative for COVID, flu, RSV, and strep throat today. Please wash all curious that the CT was in contact with. Open your windows to air out your house. You may take prescribed medication for allergy like symptoms. You may also take Benadryl as needed can pick this up at the pharmacy, please be advised that this can cause drowsiness Drink plenty of fluids and get plenty of rest. If any new or worsening symptoms occur including but not limited to difficulty breathing, swallowing, itchiness not responding to Benadryl, please return for re-evaluation. Prescriptions: New cetirizine 10 mg tablet 10 mg PO DAILY PRN (Reason: allergy symptoms) Qty: 30 0RF No Action albuterol sulfate 90 mcg/actuation HFA aerosol inhaler 2 puff inhalation Q4-6H PRN (Reason: bronchospasm) Qty: 8.5 2RF melatonin 10 mg Tablet 10 mg PO BEDTIME PRN (Reason: Insomnia) lamotrigine 25 mg tablet 50 mg PO DAILY 20 Days Qty: 60 0RF Rx Instructions: take 2 tablets daily (50mg) for 10 days then take 3 tablets daily (75MG) for 10 days stop medication if develop rash quetiapine [Seroquel] 25 mg tablet 50 mg PO BEDTIME Qty: 20 1RF ibuprofen 600 mg tablet 600 mg PO Q8H PRN (Reason: pain) Qty: 30 0RF cyclobenzaprine 5 mg tablet 5 mg PO BEDTIME PRN (Reason: muscle spasm) Qty: 14 0RF hydroxyzine HCl 25 mg tablet 25 mg PO BID PRN (Reason: anxiety) drospirenone-ethinyl estradiol [Niru (28)] 3-0.03 mg tablet 1 tab PO DAILY Qty: 28 6RF acetic acid 2 % solution 3 drp otic (ear) left DAILY 28 Days Qty: 15 1RF Rx Instructions: apply to (cotton) wick; replace wick every 24 hours fluticasone propionate [Flovent HFA] 110 mcg/actuation HFA aerosol inhaler 1 puff inhalation BID 30 Days Qty: 12 3RF Stand Alone Forms: Work/School Release Interventions: ED Discharge Assessment Last Done: 01/01/23 13:47 Discharge Date/Time: 01/01/23 13:47
[2023-01-01 11:31] VITALS: BP 106/62; PULSE 75; RESP 21; TEMP 36.6; O2SAT 100
[2023-01-01] MEDS: Famotidine 20 MG TABLET PO (11:40)
[2023-01-01] MEDS: diphenhydrAMINE HCL 25 MG CAPSULE 50 MG PO (11:40)
[2023-01-01] MEDS: predniSONE 20 MG TABLET 60 MG PO (11:40)
--- NOTE | 2023-01-01 11:55 | PC.NURSE ---
labs obtained- yoan
[2023-01-01 12:15] LABS: IDNOW Serial# 08D9AD1C; Strep A Nucleic Acid Negative (Negative)
[2023-01-01 12:38] LABS: Influenza A PCR NEGATIVE (Negative); Influenza B PCR NEGATIVE (Negative); Resp Syncy Virus RNA Qual PCR NEGATIVE (Negative); SARS COV2 PCR INHOUSE NEGATIVE (Negative)
== END 2023-01-01 13:47 | disposition home or self-care (01) ==
PROVIDERS: Physician Assistant Medical; Emergency Provider Emergency Medicine
DX: J30.81 Allergic rhinitis due to animal (cat) (dog) hair and dander (principal); F17.200 Nicotine dependence, unspecified, uncomplicated; Z20.822 Contact with and (suspected) exposure to COVID-19; Z20.828 Contact with and (suspected) exposure to other viral communicable diseases; Z79.899 Other long term (current) drug therapy; Z71.6 Tobacco abuse counseling
CPT/HCPCS: 0241U; 87651; 99283

== ENCOUNTER 2023-02-28 08:43 | Outpatient (REF) | payer OTHER, SELFPAY | END 2023-02-28 08:44 | disposition home or self-care (01) | LOC: HO.LAB 08:43 | PROVIDERS: PCP Physician Assistant; Visit Provider Physician Assistant | DX: Z13.89 Encounter for screening for other disorder (principal) ==

== ENCOUNTER 2023-03-01 08:35 | Outpatient (REF) | payer OTHER, SELFPAY ==
[2023-03-01 10:25] LABS: Hematocrit 38.6 % (37.0-47.0); Hemoglobin 12.9 g/dl (12.0-16.0); Mean Corpuscular HGB Conc 33.4 g/dl (31.0-35.0); Mean Corpuscular Hemoglobin 29.2 pg (27.0-33.0); Mean Corpuscular Volume 87.3 fL (80.0-98.0); Mean Platelet Volume 11.3 fL (9.4-12.3); Platelet Count 326 X10*3/uL (160-400); Red Blood Count 4.42 X10*6/uL (4.20-5.50); Red Cell Distribution Width 12.5 % (11.0-16.0); White Blood Count 9.9 X10*3/uL (4.8-10.8)
[2023-03-01 10:27] LABS: Appearance Urine Cloudy; Color Urine Yellow; Glucose Urine UA Negative (Negative); Leukocyte Esterase Urine Negative (Negative); Nitrite Urine Negative (Negative); Specific Gravity - Urine 1.025 (1.005-1.025); Urine Blood Negative (Negative); Urine Ketones Negative (Negative); Urine Protein Negative (Neg-Trace)
[2023-03-01 11:08] LABS: Alanine Aminotransferase 14 U/L (0-31); Albumin Level 3.8 g/dL (3.5-5.0); Alkaline Phosphatase 51 U/L (39-117); Anion Gap 9 (12-20); Aspartate Amino Transferase 12 U/L (5-31); Bilirubin Total 0.3 mg/dL (0.0-1.0); Blood Urea Nitrogen 12 mg/dL (9-16); Calcium 8.9 mg/dL (8.4-10.2); Carbon Dioxide 26 mmol/L (22-29); Chloride 108 mmol/L (96-108); Estimated Glomerular Filt Rate > 60; Glucose Random 86 mg/dL (60-115); Potassium 3.8 mmol/L (3.3-5.1); Sodium 139 mmol/L (135-145); Total Protein 7.2 g/dL (6.5-8.0)
== END 2023-03-01 08:36 | disposition home or self-care (01) ==
LOC: HO.LAB 08:35
PROVIDERS: PCP Physician Assistant; Visit Provider Physician Assistant
DX: R30.0 Dysuria (principal); R23.3 Spontaneous ecchymoses
CPT/HCPCS: 36415; 80053; 81003; 85027

== ENCOUNTER 2023-05-21 13:09 | Outpatient (REF) | payer OTHER, SELFPAY ==
[2023-05-21 13:48] LABS: Hematocrit 37.2 % (37.0-47.0); Hemoglobin 12.5 g/dl (12.0-16.0); Mean Corpuscular HGB Conc 33.6 g/dl (31.0-35.0); Mean Corpuscular Hemoglobin 28.9 pg (27.0-33.0); Mean Corpuscular Volume 85.9 fL (80.0-98.0); Mean Platelet Volume 10.3 fL (9.4-12.3); Platelet Count 317 X10*3/uL (160-400); Red Blood Count 4.33 X10*6/uL (4.20-5.50); Red Cell Distribution Width 12.1 % (11.0-16.0); White Blood Count 11.1 X10*3/uL (4.8-10.8)
[2023-05-21 14:19] LABS: Appearance Urine Clear; Color Urine Yellow; Glucose Urine UA Negative (Negative); Leukocyte Esterase Urine Negative (Negative); Nitrite Urine Positive (Negative); UMIC TRIGGER UACC YES; Urine Blood Negative (Negative); Urine Ketones Negative (Negative); Urine Protein Negative (Neg-Trace)
[2023-05-21 14:24] LABS: Bacteria Urine 3+ (None Seen); Hyaline Casts Urine 0-2 /LPF (0-2); RBC Urine 0-2 /HPF (0-2); UACC Culture Trigger YES; WBC Urine 0-5 /HPF (0-5)
[2023-05-21 14:41] LABS: Anion Gap 11 (12-20); Blood Urea Nitrogen 11 mg/dL (9-16); Calcium 8.8 mg/dL (8.4-10.2); Carbon Dioxide 23 mmol/L (22-29); Chloride 107 mmol/L (96-108); Estimated Glomerular Filt Rate > 60; Glucose Random 91 mg/dL (60-115); Iron 98 mcg/dL (30-160); Percent Iron Saturation 24 % (15-50); Potassium 3.5 mmol/L (3.3-5.1); Sodium 137 mmol/L (135-145); Total Iron Binding Capacity 405 mcg/dL (228-428); Unsaturated Iron Binding 307 ug/dL
[2023-05-21 14:56] LABS: TSH reflex Free T4 1.56 uIU/mL (0.32-4.0)
[2023-05-21 15:09] LABS: Folate 9.6 ng/mL (> or = 4.0); Vitamin B12 226 pg/mL (200-900)
== END 2023-05-21 13:10 | disposition home or self-care (01) ==
LOC: HO.LAB 13:09
PROVIDERS: PCP Physician Assistant; Visit Provider Physician Assistant
DX: D50.9 Iron deficiency anemia, unspecified (principal); E53.8 Deficiency of other specified B group vitamins; R42 Dizziness and giddiness; R55 Syncope and collapse
CPT/HCPCS: 36415; 80048; 81001; 82607; 82746; 83540; 84443; 85027; 87086; 87088; 87186

== ENCOUNTER 2023-05-31 11:19 | Outpatient (REF) | payer OTHER, SELFPAY ==
[2023-05-31 11:47] LABS: Appearance Urine Clear; Color Urine Yellow; Glucose Urine UA Negative (Negative); Leukocyte Esterase Urine Negative (Negative); Nitrite Urine Negative (Negative); Specific Gravity - Urine 1.025 (1.005-1.025); Urine Blood Negative (Negative); Urine Ketones Negative (Negative); Urine Protein Negative (Neg-Trace)
[2023-05-31 12:32] LABS: Syphilis Screen Nonreactive (Nonreactive)
[2023-05-31 12:35] LABS: HBc Num1 0.09 S/CO (0.00-0.79); HBsAGNum1 0.35 S/CO (0.00-0.99); HIV AB/AG Nonreactive (Nonreactive); HIV Num 1 0.06 S/CO (0.00-0.99); Hepatitis B Core Antibody Nonreactive (Nonreactive); Hepatitis B Surface Antigen Negative (Negative); ~HepC Num1 0.12 S/CO (0.00-0.79); ~Hepatitis B Surface Antibody REACTIVE (Nonreactive); ~Hepatitis C Antibody Nonreactive (Nonreactive)
[2023-05-31 13:36] LABS: CT PCR NOT DETECTED (Not Detect.); NG PCR NOT DETECTED (Not Detect.)
== END 2023-05-31 11:20 | disposition home or self-care (01) ==
LOC: HO.LAB 11:19
PROVIDERS: Visit Provider Physician Assistant
DX: R30.0 Dysuria (principal); R42 Dizziness and giddiness; R55 Syncope and collapse; Z20.2 Contact with and (suspected) exposure to infections with a predominantly sexual mode of transmission
CPT/HCPCS: 0353U; 81003; 86704; 86706; 86780; 86803; 87340; 87389

== ENCOUNTER 2023-12-06 13:21 | Outpatient (AMB) | payer OTHER, SELFPAY ==
[2023-12-06 13:30] VITALS: BP 110/82; PULSE 88; O2SAT 98; BMI 31.8
--- NOTE | 2023-12-06 13:30 | MHC.PC.OV ---
Vital Signs 12/06/23 13:30 Height 5 ft 2 in Weight 174 lb 2 oz BMI 31.8 BP 110/82 Blood Pressure Location Lt brachial Position Sitting Pulse 88 Pulse Source Pulse Oximeter Pulse Oximetry (%) 98 Oxygen Delivery Method Room Air Intake Visit Reasons: Annual Exam Intake Note: Patient is here today for a physical. Housing Management Representative Required: No Accompanied by: Self / Same As Patient Allergies cat dander [cats] Allergy (Verified 12/06/23 13:47) Anxiety Medication List - Last Reconciled 12/06/23 by Corey Gunn PA-C acetic acid 2% 3 drps otic (ear) left DAILY 28 days albuterol sulfate 90 mcg/actuation 2 puffs inhalation Q4-6H PRN aripiprazole 5 mg PO DAILY cetirizine 10 mg PO DAILY PRN cyclobenzaprine 5 mg PO BEDTIME PRN drospirenone-ethinyl estradiol 3-0.03 mg (Niru (28)) 1 tab PO DAILY fluticasone propionate 110 mcg/actuation (Flovent HFA) 1 puff inhalation BID 30 days hydroxyzine HCl 25 mg PO BID PRN ibuprofen 600 mg PO Q8H PRN melatonin 10 mg PO BEDTIME PRN miconazole nitrate (Monistat 3) 1 appful vaginal BEDTIME 3 days nitrofurantoin macrocrystal 100 mg PO BID 5 days nystatin 5 mL PO BID PRN 6 days Tobacco use date assessed: 12/06/23 Dental Screening Dental Screen Date: 12/06/23 Did you have a dental visit in the last 12 months?: No Did you have a dental problem in the last 6 months where you did not have access to dental care?: No Was dental information given to patient?: Patient has dentist HPI Annual Exam HPI Details ?Patient is a 38-year-old female here today for routine annual physical.? Patient has a past medical history significant for Bipolar disorder, major depressive disorder, asthma, obesity, tobacco use. concerns--> report she fell 2 months ago and landed on her elbow causing an injury. She has since been having a lot of pain in her left elbow and difficulty with full extension. She has been using ibuprofen though has not been effective. .. Asthma: Reports her asthma has been worse as of late due to her allergies. 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 She does report using her albuterol inhaler though does not get too much relief .. ..Bipolar disorder: Has been set up with mental therapist and a psychiatrist whom will start managing her mental health medications. She has been having difficulty with her moods even with medication, continues to make med changes with her psychiatrist to find the right med.. Also has premenstrual dysphoria to which she has been taking hormonal therapy for. She reports her current blood control pills are not helpful and would like to change back to Niru which was helpful in the past. .. Vaccine:? Up-to-date with flu vaccine, Needs tetanus vaccine(declines),? 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 [facility] Medical History Post-traumatic stress disorder, unspecified Asthma Surgical History History of bilateral tubal ligation H/O LEEP delivery delivered Family History Father AIDS Mother Heart failure Diabetes Stroke Mental health disorder Social History (Updated 12/06/23 @ 13:54 by Corey Gunn PA-C) Household Members: Children Housing: Apartment Alcohol intake: former Patient Tobacco Use Status: Current everyday Tobacco user Tobacco use type: Smokeless Tobacco (VAPING) e-Cigarette/Vaping Use: Currently Using (2 month ago with zero nicotine) Second Hand Smoke Exposure: No service: No Current occupational status: employed 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 1. Little interest or pleasure in doing things: nearly every day 2. Feeling down, depressed, or hopeless: nearly every day 3. Trouble falling or staying asleep, or sleeping too much: nearly every day 4. Feeling tired or having little energy: nearly every day 5. Poor appetite or overeating: nearly every day 6. Feeling bad about yourself - or that you are a failure or have let yourself or your family down: not at all 7. Trouble concentrating on things, such as reading the newspaper or watching television: nearly every day 8. Moving or speaking so slowly that other people could have noticed. Or the opposite - being so fidgety or restless that you have been moving around a lot more than usual: nearly every day 9. Thoughts that you would be better off or of hurting yourself in some way: more than half the days Total score: 23 Depression Screening Interpretation: Positive Depression Screening Follow-up: Existing condition and In treatment Depression Screening Done: Yes 25361 - PHQ-9 Billing: Yes Source: Developed by Drs. Gómez Mercado, Matilde Chaudhry, Devon Moreno and colleagues, with an educational dajuan from [employer]. Thrive Questionnaire Date Thrive assessed: 12/06/23 I am a: Patient What is your living situation today?: I have a steady place to live Within the past 12 months, did the food you bought not last and you didn't have the money to get more?: Never true Within the past 12 months, did you worry whether your food would run out before you got money to buy more?: Never true Do you have trouble paying for medicines?: No Do you have trouble getting transportation to medical appointments?: No Do you have trouble paying your heating and electricity bill?: No Do you have trouble taking care of your child, family member or friend?: No Do you have trouble with day-to-day activities such as bathing, preparing meals, shopping, managing finances, etc.?: No Are you currently unemployed and looking for a job?: No Are you interested in more education?: No Please select the resources that you would like help with: None Currently or been in a relationship where the following occur: No concerns reported THRIVE Score: 0 AUDIT C Alcohol Use Questionnaire (AUDIT-C) 1. How often do you have a drink containing alcohol?: Never 3. How often do you have six or more drinks on one occasion?: Never Total Score: 0 SANDRA-7 AMB Questionnaire SANDRA-7 Date SANDRA - 7 assessed: 12/06/23 Feeling nervous, anxious, or on edge: 2 = More than half the days Not being able to stop or control worryin = More than half the days Worrying too much about different things: 2 = More than half the days Trouble relaxin = Nearly every day Being so restless that it is hard to sit still: 3 = Nearly every day Becoming easily annoyed or irritable: 3 = Nearly every day Feeling afraid as if something awful might happen: 2 = More than half the days Total SANDRA-7 score (0-4 normal; 5-9 mild; 10-14 moderate; 15-21 severe): 17 Source: Developed by Drs. Gómez Mercado, Matilde Chaudhry, Devon Moreno and colleagues, with an educational dajuan from [employer]. SANDRA-7 Assessment Billing SANDRA-7 Assessment Tool: SANDRA-7 Assessment 42939 Review of Systems Const Denies body aches, Denies chills, Denies excessive sweating, Denies fatigue, Denies fever(s) and Denies headache(s) Eyes Denies blurry vision ENT Denies dysphagia, Denies vertigo, Denies dizziness, Denies headache(s), Denies hearing loss and Denies tinnitus Card Denies chest pain, Denies chest pain with activity, Denies syncope, Denies irregular heart rhythm and Denies dyspnea Resp Denies chest congestion, Denies cough, Denies hemoptysis, Denies dyspnea and Denies wheezing GI Denies abdominal pain, Denies melena, Denies hematochezia, Denies coffee ground emesis, Denies dysphagia, Denies diarrhea, Denies nausea and Denies vomiting Denies urinary frequency, Denies dysuria, Denies urinary hesitancy and Denies urinary urgency Musc Denies arthralgias, Denies limited range of motion, Denies muscle cramps and Denies muscle weakness Skin/Breast Denies rash and Denies skin ulcer Neuro Denies Abnormal speech present, Denies confusion, Denies vertigo, Denies dizziness, Denies syncope, Denies headache(s), Denies memory loss and Denies seizure-like activity Psych Denies anxiety, Denies confusion, Denies depression, Denies memory loss, Denies panic attacks and Denies paranoia Endo Denies excessive sweating, Denies fatigue, Denies flushing, Denies polydipsia and Denies polyuria Aller/Immun Denies wheezing Physical exam (Primary Care) Vital Signs: Last Vital Signs Pulse 88 12/06/23 13:30 BP 110/82 12/06/23 13:30 Pulse Ox 98 12/06/23 13:30 Oxygen Delivery Method Room Air 12/06/23 13:30 BMI result Body Mass Index 31.8 Tobacco/Smoking Status: Tobacco use Status Tobacco use date assessed 12/06/23 12/06/23 13:39 Patient Tobacco Use Status Current everyday Tobacco 12/06/23 13:30 Tobacco use type Smokeless Tobacco (VAPING) 12/06/23 13:30 e-Cigarette/Vaping Use Currently Using (2 month ago 12/06/23 13:30 with zero nicotine) Are you ready to quit: No Tobacco cessation counseling provided: Yes Items discussed: Nicotine replacement and QuitWorks Relapse Prevention: discussed the importance of a supportive environment, discussed negative mood or depression after quitting, weight gain after smoking is common and discussed dietary, exercise and/or lifestyle changes Number of minutes spent counselin CPT code: 46271 - 4-10 Minutes PHQ-9: PHQ-9 Score PHQ-9: Total score 23 12/06/23 13:39 Depression Screening Interpretation: Positive Depression Screening Follow-up: Existing condition and In treatment Thrive Assessment: Date of Thrive Assessment Date Thrive assessed 12/06/23 12/06/23 13:39 Currently or been in a relationship where the following occur: No concerns reported Const General: cooperative, comfortable, no acute distress, alert and awake; No confusion Orientation/consciousness: oriented to person, oriented to place, patient oriented x3 and No confusion HENMT Head: Yes normocephalic Ears: external ears normal and TM's normal bilaterally Face and sinus: No sinus tenderness Mouth: Normal oral and palatal mucosa present and tongue normal Teeth and gingiva: dentition normal and gingiva normal Throat: Yes posterior oropharynx normal, Yes tonsils normal and Yes uvula midline Eyes Conjunctivae: conjunctivae normal Sclerae: sclerae normal Pupils: Equal, round and reactive pupils present EOM: EOMs intact bilaterally Direct Ophthalmoscopy: No no photophobia Neck Neck: Yes no lymphadenopathy, No tender and Yes no JVD Thyroid: Thyroid normal Carotids: no bruits Chest Chest palpation & inspection: no tenderness Resp Effort & Inspection: normal respiratory effort, no audible wheezes, not labored and no stridor Auscultation: no crackles, no rales, no rhonchi and no wheezes Cardio Jugular venous distension: no JVD Rate: regular rate, not bradycardic and not tachycardic Rhythm: regular rhythm Bruits: no carotid bruits Peripheral pulses: Peripheral pulses 2+ throughout GI Inspection: Yes normal to inspection, No abdominal wall ecchymosis and No visible herniation Palpation (GI): Soft to palpation, nontender, no guarding, not rigid and No hepatosplenomegaly present Auscultation: normoactive bowel sounds General: Yes no CVA tenderness Back/Spine/Pelvis Back: no CVA tenderness and No back tenderness Cervical Spine: cervical ROM normal Thoracic/Lumbar Spine: thoracic and lumbar spine normal to inspection, straight leg raise negative bilaterally, No thoraco-lumbar ROM limited and No lumbar spinal tenderness Skin Lesions: no lesions Rashes: no rashes Wounds: no wounds Neuro General: oriented to person, oriented to place, patient oriented x3, CN's II-XI intact bilaterally and No confusion Cranial nerves: Yes Equal, round and reactive pupils present and Yes Normal accommodation reflex present Cognition (Neuro): normal cognition Speech: No Abnormal speech present Gait exam (Neuro): Normal gait present Motor exam (neuro): 5/5 motor strength present throughout Extrem Other: LEFT ELBOW: DECREASED EXTENSION RANGE OF MOTION NO NOTABLE SWELLING, ABLE TO PRONATE AND SUPINATE LEFT UPPER EXTREMITY Right upper extremity: full ROM; no cyanosis Left upper extremity: full ROM; no cyanosis Right lower extremity: no edema Left lower extremity: no edema Psych Appearance: grossly normal Mental Status: mental status grossly normal Affect: normal affect Attitude: cooperative Thought process: Normal thought process present Assessment and Plan Assessment & Plan (1) Annual physical exam: Code(s): Z00.00 - Encounter for general adult medical examination without abnormal findings (2) Bipolar disorder in partial remission: Code(s): F31.70 - Bipolar disorder, currently in remission, most recent episode unspecified Qualifiers: Most recent bipolar episode type: depressed Qualified Code(s): F31.75 - Bipolar disorder, in partial remission, most recent episode depressed Plan: Now followed by a psychiatrist and mental therapist whom will be managing her mental health medication. Feels he is now in a better place from a mental health standpoint. Now on 75 mg which gene for mood stabilization. (3) Asthma: Code(s): J45.909 - Unspecified asthma, uncomplicated Qualifiers: Asthma severity: mild Asthma persistence: persistent Asthma complication type: uncomplicated Qualified Code(s): J45.30 - Mild persistent asthma, uncomplicated Plan: Asthma has been fairly well controlled. Unfortunately still does electronic cigarettes. Does have an allergy component thus will start allergy medication as well. (4) Ear itching: Code(s): L29.9 - Pruritus, unspecified Plan: Will supply patient with loratadine for bilateral ear itch likely secondary to allergic etiology.. (5) MDD (major depressive disorder), recurrent episode, moderate: Code(s): F33.1 - Major depressive disorder, recurrent, moderate Plan: Patient now speaking with a mental therapist and a psychiatrist whom now is managing her mental health medications. She reports her mental health medications have not been significantly helpful. Has continued to make med changes to find her relief from a bipolar disorder and major depressive disorder. (6) Left elbow tendinitis: Code(s): M77.8 - Other enthesopathies, not elsewhere classified Plan: Patient 2 month history of left elbow pain status post fall. Has not had any medical workup. Will send for x-ray to evaluate for any hairline fracture. Having difficulty with full extension over left elbow. Will likely benefit from physical therapy. Will also refer to orthopedics for evaluation. (7) Bipolar disorder with current episode depressed: Code(s): F31.30 - Bipolar disorder, current episode depressed, mild or moderate severity, unspecified Qualifiers: Current episode severity: moderate Qualified Code(s): F31.32 - Bipolar disorder, current episode depressed, moderate Plan: CONTINUES TO SEE A PSYCHIATRIST. ALSO CONTINUES TO TRY TO MAKE MED CHANGES TO STABILIZE HER MOOD. CONTINUES TO HAVE DEPRESSED MOOD THOUGH also does have good days as well. Has tried lamotrigine though had side effects rash. Seroquel caused too much weight gain. (8) Obese: Code(s): E66.9 - Obesity, unspecified Qualifiers: Obesity type: due to excess calories Obesity classification: adult class 1 (BMI 30 - 34.9) Serious obesity comorbidity presence: without serious comorbidity Body mass index: BMI 32.0-32.9 Qualified Code(s): E66.09 - Other obesity due to excess calories; Z68.32 - Body mass index [BMI] 32.0-32.9, adult Plan: Patient's BMI over 30. Has gained weight since starting new psychiatric medications though has been continued off Seroquel though has not lost any weight. She is interested in trying a GLP 1 to help her lose weight. (9) Breast cancer screening: Code(s): Z12.39 - Encounter for other screening for malignant neoplasm of breast Qualifiers: Breast cancer screening modality: mammogram Qualified Code(s): Z12.31 - Encounter for screening mammogram for malignant neoplasm of breast (10) Blurred vision, bilateral: Code(s): H53.8 - Other visual disturbances Orders: Orders Comprehensive [place]. Panel Fast Today Z13.1 - Encounter for screening for diabetes mellitus Complete Blood Count no Diff Today R23.3 - Spontaneous ecchymoses XR elbow LT 2V Today M77.8 - Other enthesopathies, not elsewhere classified PT Evaluation and Treatment Today M77.8 - Other enthesopathies, not elsewhere classified MM screening mammo BI Today Z12.31 - Encounter for screening mammogram for malignant neoplasm of breast Referrals Orthopedics Referral M77.8 - Other enthesopathies, not elsewhere classified Ophthalmology Referral H53.8 - Other visual disturbances Medications: New semaglutide (weight loss) (Wegovy) administer weeks 1 through 4 of therapy 0.25 mg (0.5 mL) subcut QWEEK 4 weeks 2 mL 0RF E66.09 - Other obesity due to excess calories, Z68.32 - Body mass index [BMI] 32.0-32.9, adult loratadine 10 mg PO DAILY 90 tabs 1RF L29.9 - Pruritus, unspecified meloxicam 15 mg PO DAILY 30 days 30 tabs 1RF M77.8 - Other enthesopathies, not elsewhere classified Discontinued cetirizine Discontinued Reason: Duplicate 10 mg PO DAILY PRN 30 tabs 0RF allergy symptoms Coding Level of Care Code Est Pt Prev Care 40-64y(57731) Diagnoses Annual physical exam Z00.00 Bipolar disorder, in partial remission, most recent episode depressed F31.75 Most recent bipolar episode type: depressed Mild persistent asthma without complication J45.30 Asthma severity: mild Asthma persistence: persistent Asthma complication type: uncomplicated Ear itching L29.9 MDD (major depressive disorder), recurrent episode, moderate F33.1 Left elbow tendinitis M77.8 Bipolar affective disorder, currently depressed, moderate F31.32 Current episode severity: moderate Class 1 obesity due to excess calories without serious comorbidity with body mass index (BMI) of 32.0 to 32.9 in adult E66.09; Z68.32 Obesity type: due to excess calories Obesity classification: adult class 1 (BMI 30 - 34.9) Serious obesity comorbidity presence: without serious comorbidity Body mass index: BMI 32.0-32.9 Encounter for screening mammogram for malignant neoplasm of breast Z12.31 Breast cancer screening modality: mammogram Blurred vision, bilateral H53.8 Additional Codes SANDRA-7 Assessment Billing - SANDRA-7 Assessment Tool: SANDRA-7 Assessment 33086 ([id number]) Vital Signs *Quality* - CPT code: 41435 - 4-10 Minutes ([id number])
== END 2023-12-06 14:09 | disposition home or self-care (01) ==
PROVIDERS: PCP Physician Assistant; Visit Provider Physician Assistant
DX: Z00.00 Encounter for general adult medical examination without abnormal findings (principal); F31.32 Bipolar disorder, current episode depressed, moderate; J45.30 Mild persistent asthma, uncomplicated; L29.9 Pruritus, unspecified; M77.8 Other enthesopathies, not elsewhere classified; E66.09 Other obesity due to excess calories; Z68.32 Body mass index [BMI] 32.0-32.9, adult; Z12.31 Encounter for screening mammogram for malignant neoplasm of breast; H53.8 Other visual disturbances
CPT/HCPCS: 99396

== ENCOUNTER 2023-12-21 08:58 | Outpatient (REF) | payer OTHER, SELFPAY ==
--- NOTE | ~2023-12-21 | MM_ITS ---
EXAMINATION: MM SCREENING DIGITAL BREAST TOMOSYNTHESIS, BILATERAL CLINICAL INFORMATION: Screening. Asymptomatic. COMPARISON: Mammography: Baseline. TECHNIQUE: Digital breast mammography with tomosynthesis is performed in both the craniocaudal and mediolateral oblique views along with computer-aided detection (CAD). FINDINGS: There are scattered areas of fibroglandular density (ACR BI-RADS breast composition Category b). There are no significant masses, abnormal calcifications, or other abnormalities. MM/MM tomosynthesis screening BI IMPRESSION: No mammographic evidence of malignancy. ASSESSMENT: BI-RADS BI-RADS 1 - Negative RECOMMENDATION: Routine annual mammography screening. 1 year F/U This examination should not preclude the clinical evaluation of a suspicious palpable abnormality. This patient's information was entered into a reminder system with a target due date for their next mammogram. Electronically signed by: Astrid Hobson DO 01/06/2024 03:12 PM EDT
--- NOTE | ~2023-12-21 | XR_ITS ---
EXAMINATION: XR ELBOW, LEFT CLINICAL INFORMATION: Enthesitis COMPARISON: None available. TECHNIQUE: AP, lateral, and oblique views of the left elbow. FINDINGS: No fracture or malalignment. No joint effusion. There is an enthesophyte at the common extensor tendon origin. Otherwise unremarkable. XR/XR elbow LT 2V IMPRESSION: 1. No fracture or joint effusion. 2. Enthesophyte at the common extensor tendon origin. Electronically signed by: Arpan Martinez MD 12/27/2023 08:44 AM EDT
[2023-12-21 09:55] LABS: Hematocrit 40.4 % (37.0-47.0); Hemoglobin 13.3 g/dl (12.0-16.0); Mean Corpuscular HGB Conc 32.9 g/dl (31.0-35.0); Mean Corpuscular Volume 88.2 fL (80.0-98.0); Mean Platelet Volume 10.8 fL (9.4-12.3); Platelet Count 330 X10*3/uL (160-400); Red Blood Count 4.58 X10*6/uL (4.20-5.50); Red Cell Distribution Width 12.4 % (11.0-16.0); White Blood Count 7.9 X10*3/uL (4.8-10.8)
[2023-12-21 10:58] LABS: Alanine Aminotransferase 18 U/L (0-31); Albumin Level 3.8 g/dL (3.5-5.0); Alkaline Phosphatase 66 U/L (39-117); Anion Gap 11 (12-20); Aspartate Amino Transferase 14 U/L (5-31); Bilirubin Total 0.2 mg/dL (0.0-1.0); Blood Urea Nitrogen 14 mg/dL (9-16); Calcium 9.2 mg/dL (8.4-10.2); Carbon Dioxide 24 mmol/L (22-29); Chloride 108 mmol/L (96-108); Estimated Glomerular Filt Rate > 60; Glucose Fasting 99 mg/dL (60-99); Sodium 139 mmol/L (135-145); Total Protein 7.4 g/dL (6.5-8.0)
== END 2023-12-21 08:59 | disposition home or self-care (01) ==
LOC: HO.MAMMO 08:58
PROVIDERS: PCP Physician Assistant; Visit Provider Physician Assistant
DX: Z12.31 Encounter for screening mammogram for malignant neoplasm of breast (principal); Z13.1 Encounter for screening for diabetes mellitus; R23.3 Spontaneous ecchymoses; M77.8 Other enthesopathies, not elsewhere classified
CPT/HCPCS: 36415; 73070; 77063; 77067; 80053; 85027

== ENCOUNTER → 2023-12-21 10:15 | Outpatient (BNV) | payer OTHER, SELFPAY | PROVIDERS: PCP Physician Assistant; Visit Provider Internal Medicine | DX: Z12.31 Encounter for screening mammogram for malignant neoplasm of breast (principal) | CPT/HCPCS: 77063; 77067 ==

== ENCOUNTER 2024-01-01 08:53 | Outpatient (RCR) | payer OTHER, SELFPAY ==
--- NOTE | 2024-01-01 12:12 | MHC.OT.EP ---
[address] [phone] Occupational Therapy Plan of Care Patient Name: Agatha Alaniz Date of Evaluation: 01/01/24 Diagnosis: L elbow pain Pain Location: Lateral and medial elbow Pain Score: 6 Pain Scale Used: Numeric (0 - 10) Aggravating Factors: Use, heavy lifting, and weight bearing Alleviating Factors: at res Assessment: Pt is a 38 yr old R hand dominant female who injured her L elbow while walking her puppy and falling onto her L elbow / UE to brace her fall. She has full ROM and reports pain w/ use only. She reports stabbing pain w/ use of her UE or weight bearing into the arm. She reports she has been working FT , but modifying her duties as needed. She saw YANETH Gunn recently for a physical and had an X-ray taken which was negative for fractures. She has been referred to skilled OT Therapy to decrease pain, and increase strength, and the functional use of her L UE. Pt has a small hypermobile mass on her distal Biceps proximal to her elbow joint about 3. 5 cm in size Frequency and Duration: The patient will be seen 2 xs a week for 6 weeks Short Term Goals: SEE BELOW Pt will adhere to precautions: Avoid heavy lifting, repetitive gripping, overhead reaching, weight bearing Pt will report increased ability to sleep w/out pain Pt will report 4/10 pain w/ activity Custodial Goals: Pt will report 2/10 pain w/ activity Pt will report driving w/out having to modify due to pain Pt will increase L hand plant guard 10 lbs (15 lbs) Treatment Plan: Therapeutic Exercise Therapeutic Activity Home Exercise Program Splinting Neuro Re-ed Patient Education Desensitization/Sensory Re-ed Edema Control ADL Training Ultrasound NMES Iontophoresis Paraffin Fluidotherapy MHP Cold Packs Joint Mobilization Soft Tissue Mobilization Kinesiotaping Other (see comments) Electronically Signed By: Bri Tapia OTR/L Please Sign and return to therapist. Thank you once again for your referral.
== END 2024-07-18 14:51 | disposition home or self-care (01) ==
LOC: HO.OT 08:53
PROVIDERS: PCP Physician Assistant; Visit Provider Physician Assistant
DX: M77.8 Other enthesopathies, not elsewhere classified (principal)
CPT/HCPCS: 97035; 97140; 97165; 97535

== ENCOUNTER 2024-01-15 09:10 | Outpatient (AMB) | payer OTHER, SELFPAY ==
--- NOTE | 2024-01-15 09:15 | MHC.OFFVIS ---
Intake Visit Reasons: New Pt - Left elbow pain Intake Note: Agatha is a 38 year old right hand dominant female who presents today as a new patient for a evaluation of her left elbow pain, DOI back in October. Patient reports ongoing pain for 4 months. She states that she was waling her dog and the dog pulled on the leash which made her fall and land on the stairs. She mentions that she was going to OT but she got sick and didn't go to her other sessions. Patient has tried unsubscribed percocets and a prescribed medication from her PCP but with no relief. Allergies cat dander [cats] Allergy (Verified 01/15/24 09:19) Anxiety HPI HPI New Pt - Left elbow pain: Details: 38-year-old right hand dominant female who presents in the office today, as a new patient, for an evaluation of a left elbow pain. The patient was seen by her PCP on 12/06/23 status post a left elbow injury, which occurred in 10/2023. She had a fall and landed on her left elbow. She reported severe left elbow pain and difficulty with full extension since the fall. She has tried ibuprofen without benefit. X-rays of the left elbow were ordered. While in the office today, the patient reports experiencing left elbow pain, ongoing for the past 4 months. She states she was walking with her dog, and her dog pulled her on the leash, which caused her to fall and land on an outstretched hand. She was attending OT; however, she could not continue with her other sessions due to falling sick. She has tried unsubscribed Percocet and prescribed pain medications from her PCP with no benefit. Patient has a medical history of depression, and bipolar disorder. The patient has a social history of vaping tobacco. [facility] Medical History Post-traumatic stress disorder, unspecified Asthma Surgical History History of bilateral tubal ligation H/O LEEP delivery delivered Family History Father AIDS Mother Heart failure Diabetes Stroke Mental health disorder Social History Household Members: Children Housing: Apartment Alcohol intake: former Patient Tobacco Use Status: Current everyday Tobacco user Tobacco use type: Smokeless Tobacco (VAPING) e-Cigarette/Vaping Use: Currently Using (2 month ago with zero nicotine) Second Hand Smoke Exposure: No service: No Current occupational status: employed 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 [employer] Gender identity: Female Cognitive needs: No Hearing needs: No Vision needs: No Female Reproductive History Menstrual Age of Menarche: 10 Review of Systems Const All systems reviewed & are unremarkable except as noted in HPI and below Physical Exam Const General: cooperative, healthy appearing and no acute distress Orientation/consciousness: patient oriented x3 Resp Effort & Inspection: normal respiratory effort and able to speak in complete sentences Cardio Rate: regular rate Peripheral pulses: Peripheral pulses 2+ throughout GI Palpation (GI): Soft to palpation Skin General skin exam: no rashes or lesions noted Lesions: no lesions Rashes: no rashes Neuro General: patient oriented x3 Extrem Other: Left elbow: Normal to inspection. No ecchymosis, erythema, or edema. No tenderness to palpation over the radial head. No tenderness to palpation over the medial or lateral epicondyles. Lacking about 10 degrees of full extension due to pain but passively can reach full extension. Full pronation, and supination. NVI. Assessment & Plan Assessment & Plan (1) Left elbow contusion: Code(s): S50.02XA - Contusion of left elbow, initial encounter Category: Medical Plan Ms. Anselmo Alaniz is a 38-year-old right hand dominant female who presents in the office today, as a new patient, for an evaluation of a left elbow pain. The patient was seen by her PCP on 12/06/23 status post a left elbow injury, which occurred in 10/2023. She had a fall and landed on her left elbow. She reported severe left elbow pain and difficulty with full extension since the fall. She has tried ibuprofen without benefit. X-rays of the left elbow were ordered. While in the office today, the patient reports experiencing left elbow pain, ongoing for the past 4 months. She states she was walking with her dog, and her dog pulled her on the leash, which caused her to fall and land on the stairs. She was attending OT; however, she could not continue with her other sessions due to falling sick. She has tried unsubscribed Percocet and prescribed pain medications from her PCP with no benefit. Patient has a medical history of depression and bipolar disorder. The patient has a social history of vaping tobacco. The patient was referred to occupational therapy. Should she not notice any improvement, we would consider an MRI imaging at that time. Follow-up will be in 6 weeks, or sooner if needed. X-rays of the left elbow, obtained on 12/21/23, revealed: 1. No fracture or joint effusion. 2. Enthesophyte at the common extensor tendon origin. Orders: Orders PT Evaluation and Treatment Today S50.02XA - Contusion of left elbow, initial encounter Patient Instructions: Scribed by Evelyn Be, emergency medical technician, for Mounika Zavala PA-C on 01/15/24 at 9:28 am EST. Coding Level of Care Code New Pt Level 4 (31740) Diagnoses Left elbow contusion S50.02XA
== END 2024-01-15 09:36 | disposition home or self-care (01) ==
PROVIDERS: PCP Physician Assistant; Visit Provider Physician Assistant
DX: S50.02XA Contusion of left elbow, initial encounter (principal); W19.XXXA Unspecified fall, initial encounter
CPT/HCPCS: 99204

== ENCOUNTER → 2024-01-15 09:10 | Outpatient (BNVA) | payer OTHER, SELFPAY | PROVIDERS: PCP Physician Assistant; Visit Provider Physician Assistant | DX: M25.522 Pain in left elbow (principal); S50.02XD Contusion of left elbow, subsequent encounter; W10.9XXD Fall (on) (from) unspecified stairs and steps, subsequent encounter | CPT/HCPCS: 99202 ==

== ENCOUNTER 2024-03-24 13:05 | Outpatient (AMB) | payer OTHER, SELFPAY ==
[2024-03-24 13:15] VITALS: BP 106/62; PULSE 98; O2SAT 97; BMI 30.5
--- NOTE | 2024-03-24 13:15 | A.OFFPC_ITS ---
Vital Signs 03/24/24 13:15 Height 5 ft 2 in Weight 167 lb BMI 30.5 BP 106/62 Blood Pressure Location Lt brachial Position Sitting Pulse 98 Pulse Source Pulse Oximeter Pulse Oximetry (%) 97 Oxygen Delivery Method Room Air Intake Visit Reasons: weigh in/ med refill Long Distance Operator Required: No Accompanied by: Self / Same As Patient Allergies cat dander [cats] Allergy (Verified 03/24/24 13:25) Anxiety Medication List - Last Reconciled 03/24/24 by Corey Gunn PA-C acetic acid 2% 3 drps otic (ear) left DAILY 28 days albuterol sulfate 90 mcg/actuation 2 puffs inhalation Q4-6H PRN aripiprazole 5 mg PO DAILY cyclobenzaprine 5 mg PO BEDTIME PRN drospirenone-ethinyl estradiol 3-0.03 mg (Niru (28)) 1 tab PO DAILY fluticasone propionate 110 mcg/actuation 1 puff inhalation BID 30 days ibuprofen 600 mg PO Q8H PRN loratadine 10 mg PO DAILY melatonin 10 mg PO BEDTIME PRN meloxicam 15 mg PO DAILY 30 days miconazole nitrate (Monistat 3) 1 appful vaginal BEDTIME 3 days nitrofurantoin macrocrystal 100 mg PO BID 5 days nystatin 5 mL PO BID PRN 6 days semaglutide (weight loss) (Wegovy) 0.25 mg (0.5 mL) subcut QWEEK 4 weeks semaglutide (weight loss) (Wegovy) 0.5 mg (0.5 mL) subcut QWEEK 4 weeks Tobacco use date assessed: 12/06/23 Dental Screening Dental Screen Date: 12/06/23 HPI weigh in/ med refill HPI Details ?Patient is a 39-year-old female here today for a follow-up visit.? Patient has a past medical history significant for Bipolar disorder, major depressive disorder, asthma, obesity, tobacco use. At last visit we discussed patient's weight and her BMI. She was interested in starting a GLP 1 to help her lose weight does start Wegovy and is currently on 0.5 mg weekly. She has lost nearly 15 lb since last office visit. She denies any side effects from the medication. She does report having a good exercise routine and has reduced her eating portions. She is interested in continuing with the medication with a goal weight of 135 lb. [facility] Medical History Post-traumatic stress disorder, unspecified Asthma Surgical History History of bilateral tubal ligation H/O LEEP delivery delivered Family History Father AIDS Mother Heart failure Diabetes Stroke Mental health disorder Social History Household Members: Children Housing: Apartment Alcohol intake: former Patient Tobacco Use Status: Current everyday Tobacco user Tobacco use type: Smokeless Tobacco (VAPING) e-Cigarette/Vaping Use: Currently Using (2 month ago with zero nicotine) Second Hand Smoke Exposure: No service: No Current occupational status: employed 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 Gómez Mercado, Matilde Chaudhry, Devon Moreno and colleagues, with an educational dajuan from [employer]. Review of Systems Const Denies headache(s) Eyes Denies loss of vision ENT Denies vertigo, Denies dizziness, Denies headache(s) and Denies sore throat Card Denies chest pain, Denies leg edema and Denies lightheadedness Resp Denies cough, Denies hemoptysis and Denies wheezing GI Denies abdominal pain, Denies melena, Denies constipation, Denies diarrhea and Denies vomiting Denies urinary frequency, Denies dysuria and Denies urinary urgency Musc Denies arthralgias, Denies joint swelling, Denies numbness and Denies tingling Neuro Denies Abnormal speech present, Denies behavioral changes, Denies vertigo, Denies dizziness, Denies headache(s), Denies loss of vision, Denies memory loss, Denies numbness and Denies tingling Psych Denies anxiety, Denies behavioral changes, Denies depression, Denies memory loss and Denies panic attacks Eder/Lymph Denies easy bleeding and Denies easy bruising Aller/Immun Denies wheezing Physical exam (Primary Care) Vital Signs: Last Vital Signs Pulse 98 03/24/24 13:15 BP 106/62 03/24/24 13:15 Pulse Ox 97 03/24/24 13:15 Oxygen Delivery Method Room Air 03/24/24 13:15 BMI result Body Mass Index 30.5 BMI Assessment/Plan discussion: High BMI High, discussed plan: lifestyle, weight reduction, dietary and physical activity Tobacco/Smoking Status: Tobacco use Status Tobacco use date assessed 12/06/23 03/24/24 13:16 Patient Tobacco Use Status Current everyday Tobacco 03/24/24 13:16 Tobacco use type Smokeless Tobacco (VAPING) 03/24/24 13:16 e-Cigarette/Vaping Use Currently Using (2 month ago 03/24/24 13:16 with zero nicotine) Thrive Assessment: Date of Thrive Assessment Date Thrive assessed 12/06/23 03/24/24 13:16 Const General: healthy appearing, no acute distress, alert and awake Nutritional Appearance: well nourished Orientation/consciousness: oriented to person, oriented to place and oriented to time HENMT Ears: TM's normal bilaterally General nose exam: Normal nasal mucous membranes and turbinates present Eyes Conjunctivae: conjunctivae normal Sclerae: sclerae normal Pupils: Equal, round and reactive pupils present Neck Neck: Yes no lymphadenopathy and Yes no JVD Thyroid: Thyroid normal Carotids: no bruits Resp Effort & Inspection: normal respiratory effort and not tachypneic Auscultation: no crackles, no rales, no rhonchi and no wheezes Cardio Rate: regular rate Rhythm: regular rhythm Heart sounds: no murmurs and normal S1 and S2 GI Palpation (GI): Soft to palpation, nontender, no hepatomegaly and no splenomegaly Auscultation: normal bowel sounds Skin General skin exam: no rashes or lesions noted and dry skin Neuro General: oriented to person, oriented to place and oriented to time Cranial nerves: Yes Equal, round and reactive pupils present Speech: No Abnormal speech present Gait exam (Neuro): Normal gait present Motor exam (neuro): no tremor noted Extrem Right upper extremity: full ROM Left upper extremity: full ROM Right lower extremity: full ROM; no edema Left lower extremity: full ROM; no edema Psych Mental Status: mental status grossly normal Speech and movement: Normal speech and movement present Affect: normal affect Attitude: cooperative Thought process: Normal thought process present Coding Level of Care Code Est Pt Level 3 (22862) Diagnoses Class 1 obesity E66.811 Assessment & Plan Assessment & Plan (1) Class 1 obesity: Code(s): E66.811 - Obesity, class 1 Category: Medical Plan: As per HPI patient has lost nearly 15 lb since starting GLP 1 (Wegovy) She denies any major side effects. She has been more physically active and adapting to better eating habits recently. She is happy with the results and will like to continue up titrating dose per response of a goal weight of 135 lb Orders: Orders Comprehensive [place]. Panel Fast Today Z13.1 - Encounter for screening for brayan betes mellitus
== END 2024-03-24 13:32 | disposition home or self-care (01) ==
PROVIDERS: PCP Physician Assistant; Visit Provider Physician Assistant
DX: E66.811 Obesity, class 1 (principal); Z68.30 Body mass index [BMI] 30.0-30.9, adult

== ENCOUNTER → 2024-03-24 13:05 | Outpatient (BNVA) | payer OTHER, SELFPAY | PROVIDERS: PCP Physician Assistant; Visit Provider Physician Assistant | DX: E66.811 Obesity, class 1 (principal); Z68.30 Body mass index [BMI] 30.0-30.9, adult; Z71.3 Dietary counseling and surveillance | CPT/HCPCS: 99212 ==

== ENCOUNTER 2025-03-30 13:51 | Emergency (ER) | payer OTHER, SELFPAY ==
[2025-03-30 14:28] VITALS: BP 114/69; PULSE 70; RESP 18; TEMP 36.6; O2SAT 98; BMI 32.0
--- NOTE | 2025-03-30 14:29 | ED.GENADULT ---
HPI - General Adult General Chief complaint: Upper Respiratory Symptoms Stated complaint: ? strep throat Time Seen by Provider: 03/30/25 15:34 Source: patient and old records reviewed Mode of arrival: ambulatory Limitations: no limitations History of Present Illness ED Provider: VINCENT NELSON narrative: 40-year-old female with no real significant past medical history she does have a history of bipolar disorder she notes 2 weeks ago she thinks she had the flu she had body aches, headaches, fevers, cough she thought she was getting better and then the last few days she started with cough, sore throat, sinus congestion and pressure. She states it has caused a hoarse voice and she has difficulty swallowing. She thinks she may have had a fever yesterday which he not checked. She denies any new exposures or travel. She has been taking [id number] medication with little relief. MD complaint: URI Onset (ago): week(s) (2) Location: face and mouth Radiation: non-radiation Severity: moderate Quality: aching Pain Consistency: intermittent Relieving factors: none Exacerbating factors: other Associated symptoms: cough, headaches and loss of appetite Treatments prior to arrival: none Related Data Home Medications ?Medication ?Instructions ?Recorded ?Confirmed melatonin 10 mg tablet 10 mg PO BEDTIME PRN Insomnia 09/29/22 03/24/24 aripiprazole 5 mg tablet 5 mg PO DAILY 12/06/23 03/24/24 Previous Rx's ?Medication ?Instructions ?Recorded cyclobenzaprine 5 mg tablet 5 mg PO BEDTIME PRN muscle spasm 08/29/22 #14 tabs ibuprofen 600 mg tablet 600 mg PO Q8H PRN pain #30 tabs 08/29/22 acetic acid 2 % ear solution 3 drp otic (ear) left DAILY 28 11/21/22 days #15 mL albuterol sulfate 90 mcg/actuation 2 puff inhalation Q4-6H PRN 01/24/23 aerosol inhaler bronchospasm #8.5 grams miconazole nitrate 4 % (200 mg)-2 1 appful vaginal BEDTIME 3 days 03/22/23 % (9 gram)vaginal,prefill #24 grams appl,cream (Monistat 3) nitrofurantoin macrocrystal 100 mg 100 mg PO BID 5 days #10 caps 05/23/23 capsule nystatin 100,000 unit/mL oral 5 ml PO BID PRN mouth irritation 6 10/29/23 suspension days #60 mL drospirenone 3 mg-ethinyl 1 tab PO DAILY #28 tabs 11/21/23 estradiol 0.03 mg tablet (Niru (28)) semaglutide (weight loss) 0.25 0.25 mg (0.5 mL) subcut QWEEK 4 12/06/23 mg/0.5 mL subcutaneous pen weeks #2 mL injector (Wegovy) fluticasone propionate 110 1 puff inhalation BID 30 days #12 12/28/23 mcg/actuation HFA aerosol inhaler grams meloxicam 15 mg tablet 15 mg PO DAILY 30 days #30 tabs 02/11/24 semaglutide (weight loss) 0.5 0.5 mg (0.5 mL) subcut QWEEK 4 02/13/24 mg/0.5 mL subcutaneous pen weeks #2 mL injector (Wegovy) semaglutide (weight loss) 1 mg/0.5 1 mg (0.5 mL) subcut QWEEK 4 weeks 03/24/24 mL subcutaneous pen injector #2 mL (Wegovy) semaglutide (weight loss) 1.7 1.7 mg (0.75 mL) subcut QWEEK 4 04/15/24 mg/0.75 mL subcutaneous pen weeks #3 mL injector (Wegovy) polymyxin B sulfate 10,000 1 drp ophthalmic (eye) QID 7 days 10/06/24 unit-trimethoprim 1 mg/mL eye drops #10 mL loratadine 10 mg tablet 10 mg PO DAILY #90 tabs 03/24/25 amoxicillin 875 mg-potassium 1 tab PO BID #20 tabs 03/30/25 clavulanate 125 mg tablet Allergies Allergy/AdvReac Type Severity Reaction Status Date / Time cat dander (cats) Allergy Anxiety Verified 03/30/25 14:30 Review of Systems Review of Systems: Yes all other systems are reviewed and are negative PMFSH Past Medical History Attestation statement: The following information was validated with the patient. Source: old records reviewed Medical History Post-traumatic stress disorder, unspecified Asthma Surgical History History of bilateral tubal ligation H/O LEEP delivery delivered Family History Family History Father AIDS Mother Heart failure Diabetes Stroke Mental health disorder Social History Social History Household Members: Children Housing: Apartment Alcohol intake: former Patient Tobacco Use Status: Current everyday Tobacco user Tobacco use type: Smokeless Tobacco (VAPING) e-Cigarette/Vaping Use: Currently Using (2 month ago with zero nicotine) Second Hand Smoke Exposure: No Advance Directives: No Advance Directives Information Provided: Yes service: No Current occupational status: employed 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 Oriented X3. No acute distress. Eyes: Pupils equal, round and reactive to light. ENT: Pharynx has bilateral tonsillar swelling as well as mild exudates her uvula is midline she has no signs of deeper space infection. Her maxillary sinuses have mild swelling and tenderness to palpation. But she has no periorbital abnormalities. Neck: Normal inspection. Neck supple. CVS: Normal heart rate and rhythm. Pulses normal. Respiratory: No respiratory distress. Breath sounds normal. Abdomen: Soft and nontender. Skin: Skin warm and dry. Normal skin color. Normal skin turgor. Extremities: No lower extremity edema. Neuro: Oriented X 3. No motor deficit. No sensory deficit. Course Course Course Narrative: Rapid medical examination performed in triage by Ester Lucio PA-C: Patient is a 40 year old female presenting to the emergency department with a sore throat. Detailed physical exam and review of systems are deferred to the replenishment merchandising associate. Swabs ordered. Patient placed back in the waiting room pending room availability and results. Medical Decision Making Medical Decision Making MDM Narrative: 38-year-old female with past medical history of depression and PTSD here with complaint of upper respiratory infection that started 2 weeks ago she felt like she was getting better and then she has acutely worsened with sinus pathology as well as persistent sore throat. On exam I have no concern for peritonsillar abscess or retropharyngeal abscess. She is nontoxic and well hydrated. I am going to obtain basic labs, viral panel, Monospot, strep swab. Given her symptoms and duration along with intermittent persistent fevers I am going to start her on Augmentin for likely sinusitis and tonsillitis. Differential Diagnosis Differential Diagnoses: The differential diagnosis associated with the presentation includes Tonsillitis, mono, pharyngitis, sinusitis Admission/Observation Consideration of admission/observation: Escalation of care including admission/observation considered She is nontoxic and well hydrated at this time stable for DC Lab Data MDM Lab Attestation statement: I reviewed the patient's lab results. Labs: Lab Results 03/30/25 Range/Units 14:43 Monoscreen Negative (Negative) Influenza Type A (PCR) NEGATIVE (Negative) Influenza Type B (PCR) NEGATIVE (Negative) RSV RNA Qual (PCR) NEGATIVE (Negative) SARS-CoV-2 RNA (RT-PCR) NEGATIVE (Negative) S. pyogenes GrpA LIBAN Negative (Negative) External Record Review External record reviewed: Outpatient record Prescription Management I considered prescription management with: Antibiotic Discharge Plan Discharge Clinical Impression: Sinusitis Qualifiers: Sinusitis location: maxillary Chronicity: acute Recurrence: non-recurrent Qualified Code(s): J01.00 - Acute maxillary sinusitis, unspecified Pharyngitis Qualifiers: Pharyngitis/tonsillitis etiology: unspecified etiology Qualified Code(s): J02.9 - Acute pharyngitis, unspecified Patient Disposition: Home, Self-Care Instructions: Pharyngitis (ED), Sinusitis (ED) Additional Instructions: At this time he did test negative for COVID, flu, RSV, strep throat, mono I am going to start an antibiotic given you are sick for 2 weeks and there is definitely concernfor sinusitis Rest and stay hydrated alternate Tylenol and Motrin as needed for pain Return for any worsening symptoms or concerns there is a risk for diarrhea with this antibiotic so make sure you are taking a probiotic or eating yogurt every day Prescriptions: New amoxicillin-pot clavulanate 875-125 mg tablet 1 tab PO BID Qty: 20 0RF No Action albuterol sulfate 90 mcg/actuation HFA aerosol inhaler 2 puff inhalation Q4-6H PRN (Reason: bronchospasm) Qty: 8.5 3RF miconazole nitrate [Monistat 3] 4 % (200 mg)- 2 % (9 gram) comb pack,prefill appl, cream 1 appful vaginal BEDTIME 3 Days Qty: 24 0RF Rx Instructions: as vaginal cream nitrofurantoin macrocrystal 100 mg capsule 100 mg PO BID 5 Days Qty: 10 0RF Rx Instructions: must administer with a meal/food nystatin 100,000 unit/mL suspension 5 ml PO BID PRN (Reason: mouth irritation) 6 Days Qty: 60 0RF Rx Instructions: swish and spit drospirenone-ethinyl estradiol [Niru (28)] 3-0.03 mg tablet 1 tab PO DAILY Qty: 28 6RF fluticasone propionate 110 mcg/actuation HFA aerosol inhaler 1 puff inhalation BID 30 Days Qty: 12 3RF meloxicam 15 mg tablet 15 mg PO DAILY 30 Days Qty: 30 3RF Wegovy 0.5 mg/0.5 mL pen injector 0.5 mg subcut QWEEK 28 Days Qty: 2 0RF Rx Instructions: administer weeks 5 through 8 of therapy Wegovy 1 mg/0.5 mL pen injector 1 mg subcut QWEEK 28 Days Qty: 2 0RF Rx Instructions: administer weeks 9 through 12 of therapy Wegovy 1.7 mg/0.75 mL pen injector 1.7 mg subcut QWEEK 28 Days Qty: 3 0RF Rx Instructions: administer weeks 13 through 16 of therapy polymyxin B sulf-trimethoprim 10,000 unit- 1 mg/mL drops 1 drp ophthalmic (eye) QID 7 Days Qty: 10 0RF Rx Instructions: while awake; do not exceed 6 doses in 24 hours loratadine 10 mg tablet 10 mg PO DAILY Qty: 90 1RF melatonin 10 mg Tablet 10 mg PO BEDTIME PRN (Reason: Insomnia) ibuprofen 600 mg tablet 600 mg PO Q8H PRN (Reason: pain) Qty: 30 0RF cyclobenzaprine 5 mg tablet 5 mg PO BEDTIME PRN (Reason: muscle spasm) Qty: 14 0RF acetic acid 2 % solution 3 drp otic (ear) left DAILY 28 Days Qty: 15 1RF Rx Instructions: apply to (cotton) wick; replace wick every 24 hours aripiprazole 5 mg tablet 5 mg PO DAILY Wegovy 0.25 mg/0.5 mL pen injector 0.25 mg subcut QWEEK 28 Days Qty: 2 0RF Rx Instructions: administer weeks 1 through 4 of therapy Stand Alone Forms: Work/School Release Interventions: ED Discharge Assessment Last Done: 03/30/25 15:43 Print Language: Estonian
[2025-03-30 14:58] LABS: Strep A Nucleic Acid Negative (Negative)
[2025-03-30 15:27] LABS: Resp Syncy Virus RNA Qual PCR NEGATIVE (Negative); SARS COV2 PCR INHOUSE NEGATIVE (Negative)
[2025-03-30 15:43] VITALS: BP 114/69; PULSE 70; RESP 18; TEMP 36.6; O2SAT 98
== END 2025-03-30 15:40 | disposition home or self-care (01) ==
LOC: HO.ED 15:46
PROVIDERS: Physician Assistant Medical; Emergency Provider Emergency Medicine; PCP Physician Assistant
DX: J01.00 Acute maxillary sinusitis, unspecified (principal); J02.9 Acute pharyngitis, unspecified; F17.200 Nicotine dependence, unspecified, uncomplicated; Z71.6 Tobacco abuse counseling; Z03.818 Encounter for observation for suspected exposure to other biological agents ruled out
CPT/HCPCS: 36415; 86308; 87637; 87651; 99282; 99283